=== PATIENT | male | born 1955 | race Caucasian/White ===

== ENCOUNTER → 2016-09-11 | Outpatient (CLI) | payer BC ==
[~2016-09-11] MED LIST: ATOR-14 PO; COEN150C PO; FISHOIL PO
[2016-09-11 12:16] LABS: BASO % 0.4 %; BASO ABS # 0.02 K/uL (0-0.2); COMPLETE YES; EOS % 1.1 %; HEMATOCRIT 42.9 % (42-52); IG% 0.2 %; LYMPH ABS # 1.92 K/uL (1.2-3.4); MEAN CELL VOLUME 94.5 fL (80-100); MEAN CORPUSCULAR HEMOGLOBIN 31.5 pg (25-34); MEAN CORPUSCULAR HGB CONC 33.3 g/dl (32-36); MONO % 7.3 %; PLATELET COUNT 207 K/uL (130-400); RED BLOOD COUNT 4.54 M/uL (4.7-6.1); WHITE BLOOD COUNT 5.34 K/uL (4.8-10.8)
[2016-09-11 12:21] LABS: URINE APPEARANCE CLEAR (CLEAR); URINE BILIRUBIN NEG (NEG); URINE COLOR DK YELLOW; URINE NITRITE NEG (NEG); URINE SPECIFIC GRAVITY 1.028 (1.000-1.030); UROBILINOGEN NEG (NEG); ZZUR CULT IF INDIC CLEAN CATCH NO
[2016-09-11 12:26] LABS: MANUAL MICROSCOPIC REQUIRED? NO; REVIEW REQ? NO
[2016-09-11 12:45] LABS: ALT/SGPT 25 U/L (12-78); BLOOD UREA NITROGEN 16 mg/dl (7-18); BUN/CREATININE RATIO 14.9 (10-20); CARBON DIOXIDE 29 mmol/L (21-32); CHLORIDE 104 mmol/L (98-107); GLUCOSE 105 mg/dl (70-99); POTASSIUM 4.1 mmol/L (3.5-5.1); SODIUM 138 mmol/L (136-145)
[2016-09-11 12:50] LABS: ALB/GLOB RATIO 1.7 (0.9-2); ALKALINE PHOSPHATASE 69 U/L (45-117); AST/SGOT 11 U/L (15-37)
--- NOTE | 2016-09-17 09:48 | CODING QUERY MEDICAL NECESSITY ---
SUPPORTING DIAGNOSIS NEEDED A supporting diagnosis is required for the test/procedure performed on this patient in order for us to be reimbursed by the patient's insurance. Please provide a supporting diagnosis for the following test/procedure listed below next to the test name along with your signature. *If there is no additional diagnosis for this patient that would support the following test/procedure please document that below next to the test/procedure. Test(s)/Procedure(s) that require a supporting diagnosis: * PSA DIAGNOSIS: Provider Signature: Date: Thank you Whit [employer] Information Management Once completed, please kindly fax back to [phone] For questions please call [phone]
== END | disposition home or self-care (01) ==
LOC: C.LABBFT 10:10
PROVIDERS: ATTEND Internal Medicine
DX: E78.00 Pure hypercholesterolemia, unspecified (principal); F41.9 Anxiety disorder, unspecified; R39.9 Unspecified symptoms and signs involving the genitourinary system; N40.0 Benign prostatic hyperplasia without lower urinary tract symptoms

== ENCOUNTER → 2017-05-12 | Day surgery (SDC) | payer BC, OTHER ==
[2017-04-23 10:43] VITALS: Ht 180.3 cm; Wt 95.5 kg
[~2017-05-12] VITALS: Ht 180.3 cm; Wt 95.5 kg
[~2017-05-12] MED LIST changes: -ATOR-14 PO; +ATOR10TA82 PO; -COEN150C PO; -FISHOIL PO; +LIDOCAINE HCL 2% 2 ML VIAL (20MG/ML) ONE; +PROPOFOL IV EMULSION 10 MG/ML 20 ML VIAL IV ONE; +SODIUM CHLORIDE 0.9% 500ML 500 ML IV ONE
--- NOTE | 2017-05-12 14:50 | Discharge Instructions ---
Endoscopy Patient Instructions Date / Procedure(s) Performed May 12, 2017. Colonoscopy Allergy Information Coded Allergies: Aspirin (Verified Allergy, Mild, HIVES, 05/12/17) Discharge Date / Findings May 12, 2017. Colon polyp Diverticulosis Internal hemorrhoids Medication Instructions OK to resume all medications today as prescribed Reported Home Medications Medications Dose Route/Sig Max Daily Dose Days Date Category Lipitor (Atorvastatin Calcium) 10 Mg Tab 10 Mg PO HS 04/23/17 Reported Provider Instructions Activity Restrictions - No exercising or heavy lifting for 24 hours. - Do not drink alcohol the day of the procedure. - Do not drive a car or operate machinery until the day after the procedure. - Do not make any important decisions or sign important papers in 24 hours after the procedure. Following Day: - Return to full activity which may include returning to work/school. Diet Start your diet with liquids and light foods (jello, soup, juice, toast). Then eat your usual diet if not nauseated. Treatment For Common After Affects For mild abdominal pain, bloating, or excessive gas: - Rest - Eat lightly - Lie on right side Follow-Up Information Follow-up with Dr. Russ García as scheduled Anesthesia Information What You Should Know You have had a procedure that required some medicine to reduce anxiety and discomfort. This treatment is called moderate sedation. After receiving the treatment, you may be sleepy, but you will be able to breathe on your own. The effects of the treatment may last for several hours. Follow these instructions along with Activity/Diet recommendations noted above: * Do NOT do anything where dizziness or clumsiness would be dangerous. * Rest quietly at home today, then you can be up and about tomorrow. * Have a responsible person stay with you the rest of today. * You may have had an I.V. today. If so, you may take the dressing off later today. Recommendations Call your doctor if: * Trouble breathing * Continuous vomiting for more than 24 hours * Temperature above 101 degrees * Severe abdominal pain or bloating * Pain not relieved by pain medicine ordered * There is increased drainage or redness from any incision * A large amount of rectal bleeding greater than 2-3 tablespoons. (If you had a polyp/s removed or have hemorrhoids, a small amount of blood - from the rectum is to be expected.) * You have any unanswered questions or concerns. IN THE EVENT OF A SERIOUS EMERGENCY, GO TO THE NEAREST EMERGENCY ROOM Your discharge instructions were prepared by provider Jairon Russo. Patient Instructions Signature Page Bari Moreno Patient (or Guardian) Signature/Date: I have read and understand the instructions given to me by my caregivers. Caregiver/RN/Doctor Signature/Date: The above-named patient and/or guardian has received patient instructions on this date. + Original Patient Signature Page (only) stays with chart. Please make copy for patient.
--- NOTE | 2017-05-12 14:55 | Endo History and Physical ---
History & Physical Date of Service: May 12, 2017. Chief Complaint: History of tubular adenoma Referring Physician: Dr. Russ García History of Present Illness 62 yo CM who presents for colonoscopy secondary to history of colon polyps Past Surgical History Hx Cardiac Surgery: No Hx Internal Defibrillator: No Hx Pacemaker: No Hx Abdominal Surgery: Yes (COLON RESECTION) Hx of Implantable Prosthesis: No Hx Post-Op Nausea and Vomiting: No Hx Cancer Surgery: No Hx Thoracic Surgery: No Hx Orthopedic: No Hx Urinary Tract Surgery: No Family History None Social History Smoking Status: Former Smoker Hx Substance Use: No Hx Alcohol Use: Yes (OCCASIONALLY) Allergies Coded Allergies: Aspirin (Verified Allergy, Mild, HIVES, 05/12/17) Current Medications Reported Home Medications Medications Dose Route/Sig Max Daily Dose Days Date Category Lipitor (Atorvastatin Calcium) 10 Mg Tab 10 Mg PO HS 04/23/17 Reported Vital Signs Weight (Kilograms): 95.45 Height (Feet): 5 Height (Inches): 11 Date Time Temp Pulse Resp B/P (MAP) Pulse Ox O2 Delivery O2 Flow Rate FiO2 05/12/17 14:21 36.6 60 18 154/93 (113) 97 Room Air Physical Exam General Appearance: WD/WN, no apparent distress Respiratory/Chest: Auscultation: breath sounds normal Cardiovascular: Heart Auscultation: RRR Abdomen: Bowel Sounds: normal Inspection & Palpation: soft, non-distended, no tenderness, guarding & rebound Assessment and Plan Assessment: 62 yo CM who presents for colonoscopy secondary to history of colon polyps Plan: Proceed with colonoscopy.
--- NOTE | 2017-05-12 15:33 | GI REPORT ---
Procedure Date: 05/12/2017 2:14 PM Procedure: Colonoscopy Indications: High risk colon cancer surveillance: Personal history of colonic polyps Medicines: Monitored Anesthesia Care Complications: No immediate complications. Estimated Blood Loss: Estimated blood loss: none. Procedure: Pre-Anesthesia Assessment: - Prior to the procedure, a History and Physical was performed, and patient medications and allergies were reviewed. The patient's tolerance of previous anesthesia was also reviewed. The risks and benefits of the procedure and the sedation options and risks were discussed with the patient. All questions were answered, and informed consent was obtained. Prior Anticoagulants: The patient has taken no previous anticoagulant or antiplatelet agents. ASA Grade Assessment: II - A patient with mild systemic disease. After reviewing the risks and benefits, the patient was deemed in satisfactory condition to undergo the procedure. After I obtained informed consent, the scope was passed under direct vision. Throughout the procedure, the patient's blood pressure, pulse, and oxygen saturations were monitored continuously. The scope was introduced through the anus and advanced to the terminal ileum. The colonoscopy was performed without difficulty. The patient tolerated the procedure well. The quality of the bowel preparation was good. Findings: The perianal and digital rectal examinations were normal. A 5 mm polyp was found in the ascending colon. The polyp was sessile. The polyp was removed with a hot snare. Resection and retrieval were complete. Scattered small-mouthed diverticula were found in the entire colon. Non-bleeding internal hemorrhoids were found during retroflexion. The hemorrhoids were small. Impression: - One 5 mm polyp in the ascending colon, removed with a hot snare. Resected and retrieved. - Diverticulosis in the entire examined colon. - Non-bleeding internal hemorrhoids. Recommendation: - Resume previous diet. - Continue present medications. - Repeat colonoscopy for surveillance based on pathology results. - Return to primary care physician as previously scheduled. Jairon Russo DO 05/12/2017 3:33:39 PM This report has been signed electronically. Note Initiated On: 05/12/2017 2:14 PM I attest to the content of the Intraoperative Record and orders documented therein, exceptions below
[2017-05-12 15:57] VITALS: BP 127/58; PULSE 52; O2SAT 97
--- NOTE | 2017-05-12 16:49 | Anesthesiology Progress Note ---
Anesthesia Post Op Note Date & Time May 12, 2017 at 16:49 Vital Signs Pain Intensity: 0 Vital Signs Past 12 Hours Date Time Temp Pulse Resp B/P (MAP) Pulse Ox O2 Delivery O2 Flow Rate FiO2 05/12/17 15:57 52 20 127/58 (81) 97 Room Air 05/12/17 15:44 64 20 138/97 (111) 96 Room Air 05/12/17 15:29 68 20 135/63 (87) 95 Room Air 05/12/17 14:21 36.6 60 18 154/93 (113) 97 Room Air Notes Mental Status: alert / awake / arousable, participated in evaluation Pt Amnestic to Procedure: Yes Nausea / Vomiting: adequately controlled Pain: adequately controlled Airway Patency, RR, SpO2: stable & adequate BP & HR: stable & adequate Hydration State: stable & adequate Anesthetic Complications: no major complications apparent
== END | disposition home or self-care (01) ==
LOC: C.GI 14:01
PROVIDERS: ATTEND Internal Medicine
DX: Z12.11 Encounter for screening for malignant neoplasm of colon (principal); D12.2 Benign neoplasm of ascending colon; K57.30 Diverticulosis of large intestine without perforation or abscess without bleeding; K64.8 Other hemorrhoids; Z86.010 Personal history of colon polyps; Z87.891 Personal history of nicotine dependence; Z88.6 Allergy status to analgesic agent; Z79.899 Other long term (current) drug therapy

== ENCOUNTER → 2017-05-27 | Outpatient (CLI) | payer OTHER ==
[~2017-05-27] MED LIST changes: -LIDOCAINE HCL 2% 2 ML VIAL (20MG/ML) ONE; -PROPOFOL IV EMULSION 10 MG/ML 20 ML VIAL IV ONE; -SODIUM CHLORIDE 0.9% 500ML 500 ML IV ONE
[2017-05-27 12:48] LABS: BLOOD UREA NITROGEN 19 mg/dl (7-18); CALCIUM 8.8 mg/dl (8.5-10.1); CARBON DIOXIDE 30 mmol/L (21-32); CREATININE 1.05 mg/dl (0.60-1.40); GLUCOSE 111 mg/dl (70-99); POTASSIUM 4.2 mmol/L (3.5-5.1); SODIUM 140 mmol/L (136-145)
[2017-05-27 13:15] LABS: HEMOGLOBIN A1C 5.4 % (4.5-5.6)
== END | disposition home or self-care (01) ==
LOC: C.LABBFT 07:31
PROVIDERS: ATTEND Internal Medicine
DX: R39.9 Unspecified symptoms and signs involving the genitourinary system (principal); E78.00 Pure hypercholesterolemia, unspecified; R73.03 Prediabetes

== ENCOUNTER 2022-05-19 11:47 | Observation (INO) ==
--- NOTE | 2022-05-13 14:55 | Anesthesiology Consultation ---
Date of Service May 13, 2022 Assessment & Plan (1) Encounter for pre-operative examination: Chart Review Chart Review: Acceptable Risk for Surgery (pending preop Covid testing results ) and Patient NOT seen in Pre Admission Testing -COVID screening: Per PAT nursing assessment on 05/13/22. Pt did test negative with home Covid test 3-4 weeks ago (was not feeling well- symptoms have since resolved). No known COVID-19 positive contacts or current COVID-19 related symptoms. Travel screen negative. Patient vaccinated for Covid. Pt scheduled as admission- preop Covid test ordered for 05/14/22 (pt will go to [facility])= awaiting results Per cardio workload message 05/06/22= "Based on this stress ECHO he is an acceptable cardiac risk to undergo his planned urologic surgery (TURP). From a cardiac standpoint it would be best for him to remain on aspirin uninterrupted throughout the perioperative course. However, the aspirin may dispose him to excessive bleeding from the procedure. If it is felt that he needs to stop the aspirin prior to the procedure from a urologic standpoint would do it for a minimum number of days felt necessary to safely perform the procedure. Would restart the aspirin postoperatively as soon as it is felt safe to do so from a urologic bleeding standpoint." Pt seen by cardiology 04/13/22= Status post LAD stent April 2021. On diagnostic cardiac catheterization, a thrombus was noted in the LAD. Since stent deployment no anginal type symptoms. Prior to stent placement patient had dyspnea. Also had COVID prior to stent appointment. At this time he complains of [place]. However he can walk on a treadmill for up to 1 hour at a distance of 3 miles despite this complaint. Cannot exclude the dyspnea is an adverse reaction from ticagrelor. He does have occasional associated audible wheezing. This would imply bronchoconstriction. However cannot exclude the dyspnea as an anginal equivalent symptom. Discontinue Brilinta. Continue aspirin therapy indefinitely in light of drug-eluting stent. Monitor BPs at home. Continue with losartan. If BP remains elevated would consider increasing losartan. If dyspnea does not improve with discontinuation of Brilintawe will order stress echocardiogram and PFTs. Follow-up in 6 months. Addendum 04/19/2022 = In general, the recommendation in a coronary stent patient who is on aspirin is at the remain on aspirin unerupted throughout a surgical course. This is because of the risk of late stent thrombosis. As the stent was applied at the time of acute coronary syndrome his cardiac risk is increased. From a cardiac standpoint I would recommend not stopping his aspirin. There is still question to the etiology of dyspnea on exertionwould delay any elective surgical procedure until he has resolution of dyspnea or undergoes a stress echo which shows no evidence of myocardial ischemia. Patient seen by pulmonary 04/27/2022 = restrictive lung diseaseresolved on PFT September 2021. Chest CT from August 2021 showed no interstitial thickening. Exertional shortness of breathimproving. Do not see any pulmonary etiology for patient's shortness of breath. Continue with incentive spirometry. Follow-up as needed History Surgery Operation Date: 05/19/22 10:40 Proposed Procedures p TURP (Transurethral Resection of the Prostate) - Russ Turpin MD Height/Weight Height: 5 ft 11 in Weight: 108.862 kg Allergies Allergy/AdvReac Type Severity Reaction Status Date / Time niacin Allergy Intermediate Red/itchine Verified 05/13/22 13:49 ss tamsulosin Allergy Unknown "Didn't Verified 05/13/22 13:49 work" per pt simvastatin AdvReac Mild Myalgias Verified 05/13/22 13:49 Medications Home Medications Medication Instructions Recorded Confirmed Last Taken albuterol sulfate 90 mcg/actuation 2 puff inhalation QID PRN 03/14/21 05/13/22 Unknown aerosol inhaler (ProAir HFA) shortness of breath #8.5 grams aspirin 81 mg tablet,delayed 81 mg PO QAM 04/23/21 05/13/22 01/19/22 release (Adult Low Dose Aspirin) nitroglycerin 0.4 mg sublingual 0.4 mg sublingual Q5M PRN Chest 04/23/21 05/13/22 Unknown tablet Pain Incentive Spirometer #1 ea 05/02/21 04/17/22 Unknown glucosamine-chondroitin 250 mg-200 2 tab PO QAM 05/07/21 05/13/22 01/20/22 mg tablet (Osteo Bi-Flex) lutein 25 mg-zeaxanthin 5 mg 1 cap PO QAM 05/07/21 05/13/22 01/20/22 capsule (Ocuvite Lutein) sildenafil 100 mg tablet 100 mg PO DAILY PRN sexual 06/17/21 05/13/22 Unknown activity #18 tabs metoprolol tartrate 25 mg tablet 12.5 mg PO BID #90 tabs 11/11/21 05/13/22 01/20/22 atorvastatin 80 mg tablet 80 mg PO HS #90 tabs 12/12/21 05/13/22 01/19/22 hydrocortisone 2.5 % topical cream 1 applic [place] TID PRN hemorrhoids 03/23/22 05/13/22 Unknown with perineal applicator #30 grams losartan 25 mg tablet 50 mg PO QAM #90 tabs 04/17/22 05/13/22 Unknown Past Medical History Medical History (Updated 05/14/22 @ 08:48 by Jessica Augustin PA-C) Acid reflux disease Anxiety Benign prostatic hyperplasia with lower urinary tract symptoms CAD (coronary artery disease) S/p SHIVA to LAD Apr [address] Melvin Farrar Diverticulitis of colon 2011 [place] syndrome Per record. Pt unaware. Total bili 1.9 on 03/23/22 History of COVID-19 Dx 06/15/20 ([facility]) > symptoms of nausea, aches/pain, loss of appetite, SOB > resolved except residual weakness and occasional shaking History of myocardial infarction 04/2021 HTN (hypertension) Hypercholesterolemia Hypothyroidism Obesity Past Family History Family History Father , age 71 Myocardial infarction, Onset Age: 40 x 3 Hypertension Family/Other Diabetes Coronary heart disease Dyslipidemia Mother Dementia COPD (chronic obstructive pulmonary disease) Other No family history of adverse response to anesthesia Denies family history of Ovarian cancer Prostate cancer Breast cancer Colorectal cancer Colonic polyp Past Surgical History Surgical History H/O heart artery stent x 1 () H/O hemorrhoidectomy 2008 H/O right inguinal hernia repair History of cardiac catheterization 04/2021 -- [facility] [place] - 1 stent (type?) History of carpal tunnel surgery of left wrist History of colonoscopy History of partial colectomy 2011 (from diverticulitis) History of tonsillectomy History of wisdom tooth extraction Social History Smoking Status: Former smoker tobacco type: cigarettes Do You Dip or Chew Tobacco: No Smoking End Date: 30 years ago Hx Alcohol Use: Yes Alcohol type: beer alcohol intake frequency: a few times a week Hx Substance Use: No substance use type: does not use Lab Results Anesthesia Preop Results Results Anesthesia Widget: WBC 6.40 K/ul (4.8-10.8) 05/08/22 Hgb 14.9 g/dl (14.0-18.0) 05/08/22 Hct 43.9 % (42.0-52.0) 05/08/22 Plt 223 K/uL (130-400) 05/08/22 Na 140 mmol/L (136-145) 05/08/22 K 4.2 mmol/L (3.5-5.1) 05/08/22 Cl 104 mmol/L (98-107) 05/08/22 CO2 30 mmol/L (21-32) 05/08/22 BUN 21 mg/dl (6-23) 05/08/22 Creat 1.13 mg/dl (0.6-1.4) 05/08/22 Glucose Level 97 mg/dl (70-99(Fasting)) 05/08/22 TSH 3.509 uIu/ml (0.300-4.500) 04/02/22 Free T4 0.82 ng/dl (0.61-1.60) 04/02/22 Testing Laboratory Results 05/08/22= URINE CULTURE: No growth Electrocardiogram Date: 04/16/22 Findings: + NSR @ (66bpm) Normal EKG per cardio Chest X-Ray Date: 04/16/22 Findings: + NAD Echocardiogram Date: 04/12/21 EF: 55-60% LV Function: normal RWMA: + none Other Findings: + LVH (moderate/concentric) Valvular Disease: + no significant valvular disease Moderately increased LV posterior wall thickness. Stress Test Date: 05/01/22 Type: exercise (ECHO) Resting RWMA: + none Negative exercise stress echocardiogram and EKG for ischemia at 76% MPHR. 9 METS achieved. Normal BP response with exercise. No significant ectopy at rest and with exercise. No exercise-induced chest pain. Resting echocardiogram with normal biventricular systolic function, mild LVH, borderline left atrial dilation, and no significant valvular abnormalities. Cardiac Catheterization Date: 02/15/22 LM = normal. LAD = 70-75% acute appearing lesion Circumflex = mild disease proximally. Thrombus = mild disease RCA = not injected today, catheterization in [place] (04/11/22) showed no significant disease in the RCA. Non-STEMI due to acute appearing 70-75% lesion in mid LAD, successfully stented with SHIVA, decreasing stenosis to 0%. Mild disease elsewhere. RCA not injected during this cardiac catheterization.
[~2022-05-19 11:47] MED LIST changes: -ATOR10TA82 PO; +CIPROFLOXACIN / D5W 400 MG/200 ML BAG IV SCH
[2022-05-19] MEDS ORDERED: DEXAMETHASONE SOD INJ 4 MG/ML VIAL ONE (12:55)
[2022-05-19] MEDS ORDERED: LIDOCAINE 2% MPF LOCAL 5 ML VIAL INFIL ONE (12:55)
[2022-05-19] MEDS ORDERED: ONDANSETRON INJ 2 MG/ML 2 ML VIAL ONE (12:55)
[2022-05-19] MEDS ORDERED: PROPOFOL IV EMULSION 10 MG/ML 20 ML VIAL IV ONE ×2 (12:55→13:58)
[2022-05-19] MEDS ORDERED: MIDAZOLAM HCL 1 MG/ML 2ML VIAL ONE (12:56)
[2022-05-19] MEDS ORDERED: fentaNYL citrate PF 100 MCG/2 ML VIAL ONE ×2 (12:56→14:03)
--- NOTE | 2022-05-19 13:22 | History & Physical Report ---
Date of Service May 19, 2022 Assessment & Plan (1) Benign prostatic hyperplasia with lower urinary tract symptoms: Plan: BPH with symptoms Plan for TURP Risks, benefits, expectations reviewed History of Present Illness Primary Care Provider: Russ García MD This 67-year-old male with voiding dysfunction presenting for TURP He does have a history of an AR status post stent Allergies Allergy/AdvReac Type Severity Reaction Status Date / Time niacin Allergy Intermediate Red/itchine Verified 05/13/22 13:49 ss tamsulosin Allergy Unknown "Didn't Verified 05/13/22 13:49 work" per pt simvastatin AdvReac Mild Myalgias Verified 05/13/22 13:49 Home Medications Medication Instructions Recorded Confirmed Type albuterol sulfate 90 mcg/actuation 2 puff inhalation QID PRN 03/14/21 05/19/22 Rx aerosol inhaler (ProAir HFA) shortness of breath #8.5 grams aspirin 81 mg tablet,delayed 81 mg PO QAM 04/23/21 05/19/22 History release (Adult Low Dose Aspirin) nitroglycerin 0.4 mg sublingual 0.4 mg sublingual Q5M PRN Chest 04/23/21 05/19/22 History tablet Pain Incentive Spirometer #1 ea 05/02/21 05/14/22 Rx glucosamine-chondroitin 250 mg-200 2 tab PO QAM 05/07/21 05/19/22 History mg tablet (Osteo Bi-Flex) lutein 25 mg-zeaxanthin 5 mg 1 cap PO QAM 05/07/21 05/19/22 History capsule (Ocuvite Lutein) sildenafil 100 mg tablet 100 mg PO DAILY PRN sexual 06/17/21 05/19/22 Rx activity #18 tabs metoprolol tartrate 25 mg tablet 12.5 mg PO BID #90 tabs 11/11/21 05/19/22 Rx hydrocortisone 2.5 % topical cream 1 applic [place] TID PRN hemorrhoids 03/23/22 05/19/22 Rx with perineal applicator #30 grams losartan 25 mg tablet 50 mg PO QAM #90 tabs 04/17/22 05/19/22 Rx atorvastatin 80 mg tablet 80 mg PO QAM 05/19/22 05/19/22 History famotidine 40 mg tablet (Pepcid) 40 mg PO DAILY 05/19/22 History Past Med/Surg History Medical History Acid reflux disease Anxiety Benign prostatic hyperplasia with lower urinary tract symptoms CAD (coronary artery disease) S/p SHIVA to LAD Apr [address] Melvin Farrar Diverticulitis of colon 2011 [place] syndrome Per record. Pt unaware. Total bili 1.9 on 03/23/22 History of COVID-19 Dx 06/15/20 ([facility]) > symptoms of nausea, aches/pain, loss of appetite, SOB > resolved except residual weakness and occasional shaking History of myocardial infarction 04/2021 HTN (hypertension) Hypercholesterolemia Hypothyroidism Obesity Surgical History H/O heart artery stent x 1 () H/O hemorrhoidectomy 2008 H/O right inguinal hernia repair History of cardiac catheterization 04/2021 -- [facility] [place] - 1 stent (type?) History of carpal tunnel surgery of left wrist History of colonoscopy History of partial colectomy 2011 (from diverticulitis) History of tonsillectomy History of wisdom tooth extraction Family History Father , age 71 Myocardial infarction, Onset Age: 40 x 3 Hypertension Family/Other Diabetes Coronary heart disease Dyslipidemia Mother Dementia COPD (chronic obstructive pulmonary disease) Other No family history of adverse response to anesthesia Denies family history of Ovarian cancer Prostate cancer Breast cancer Colorectal cancer Colonic polyp Social History Smoking Status: Former smoker Age Quit Using Tobacco: 34; Smoking End Date: 30 years ago; Second Hand Exposure: No; Do You Dip or Chew Tobacco: No; Tobacco Cessation Education Requested by Patient: No Hx Alcohol Use: Yes Alcohol type: beer Alcohol Intake Frequency Comment: Occasional weekend alcohol. Hx Substance Use: No Preferred Language: Serbian Communication Ability: Effective Visual Impairment: No Limitations Hearing Ability: Normal Electronic Equipment Installer Required: No Beliefs That Will Affect Care: None marital status: Single Current Living Situation: Alone current occupational status: employed current occupation: Part-time work-[employer] Feels Safe at Home: Yes Safety Concerns: Feels Safe At This Time Childhood Exposure to Second-Hand Smoke: Yes caffeine: No Dental Care, Regularly: No Physical Activity Frequency: Does not Exercise Seatbelt Use: always Sunscreen Use: No Assistive Devices: Glasses Assistive Devices Comment: reading glasses Physical Exam Constitutional: well developed and well nourished Neck: neck nontender Respiratory: normal respiratory effort; no respiratory distress and does not use accessory muscles Cardiovascular: Rate/Rhythm: regular rate Vessels: radial pulses present Extremities: no edema Gastrointestinal (Abdomen): Inspection/Auscultation: abdomen normal to inspection Percussion/Palpation: abdomen soft; abdomen nontender and no guarding Musculoskeletal: Head/Neck/Chest: normocephalic and head atraumatic Extremities: extremities normal to inspection Skin: no rashes and no lesions Trauma: no evidence of skin trauma Neurologic: awake; not obtunded Speech / Cognition: normal speech Motor/Sensory: no tremor Psychiatric: Orientation: alert and oriented x 3 Genitourinary: no CVA tenderness Lymphatic: no lymphadenopathy Results & Data Vital Signs (Past 12 Hours) Vital Signs Temp Pulse Resp BP Pulse Ox O2 Del Method 05/19/22 12:10 37.0 C 66 20 164/98 H 95 Room Air
[2022-05-19] MEDS ORDERED: fentaNYL citrate PF 100 MCG/2 ML VIAL IV PRN (13:33)
[2022-05-19] MEDS ORDERED: PROMETHAZINE HCL 12.5 MG in SODIUM CHLORIDE 0.9% 50 ML IV PRN (13:33)
[2022-05-19] MEDS ORDERED: ePHEDrine sulfate 50 MG/ML AMP IV PRN (13:33)
[2022-05-19] MEDS ORDERED: HYDROmorphone INJ 2 MG/ML SYR/VIAL IV PRN (13:33)
[2022-05-19] MEDS ORDERED: ONDANSETRON INJ 2 MG/ML 2 ML VIAL IV PRN (13:33)
[2022-05-19] MEDS ORDERED: ATROPINE SULFATE 0.1 MG/ML 10ML SYR IV PRN (13:33)
--- NOTE | 2022-05-19 14:42 | Operative Report ---
PG Post Operative Report Pre & Post Diagnosis Operation Date: 05/19/22 13:15 Pre-Op Diagnosis: Benign Prostatic Hyperplasia with Lower Urinary tract symptoms Post-Op Diagnosis: Benign Prostatic Hyperplasia with Lower Urinary tract symptoms I identified the patient and participated in the time-out.: Yes Procedure Operation Date: 05/19/22 13:15 Actual Procedures p Transurethral Resection of the Prostate(Not Applicable) - Russ Turpin MD Surgeon Russ Turpin MD Link Trainer Mechanic none Estimated Blood Loss 0 Findings Consistent with Post-Op Diagnosis Specimens none Description of Procedure The patient was identified in the preoperative holding area, appropriate informed consents were reviewed and completed and the patient was transferred to the operative suite. Upon arrival, appropriate antibiotics and anesthesia were administered and the patient was placed in dorsal lithotomy position and prepped and draped in sterile fashion. To begin the case to pass 27 [place] resectoscope with 30 degree lens. Inspection revealed a healthy-appearing urethra and a large prostate. He has a high bladder neck and a heavily trabeculated bladder. Ureteral orifices were identified. Following my inspection I exchanged the visual obturator for resecting element using a button electrode. I incised the bladder neck at 5 and 7:00 and flatten the area between the 2 incisions. This drastically improved the opening to the bladder. I then resected the left lateral lobe followed by the right lateral lobe. After completely opening the prostatic urethra meticulous hemostasis was obtained. I then placed a 22 [place] Marquez catheter and concluded the case. There were no complications. I attest to the content of the Intraoperative Record and any orders documented therein. Any exceptions are noted below.
--- NOTE | 2022-05-19 15:04 | Anesthesiology Progress Note ---
Date of Service May 19, 2022 Anesthesia Post Procedure Vital Signs Vital Signs: Temp Pulse Pulse Resp BP Pulse Ox O2 Del Method 05/19/22 15:00 52 L 12 143/84 H 92 Room Air 05/19/22 14:50 53 L 11 L 135/90 96 Room Air 05/19/22 14:40 52 L 12 146/92 H 100 Oxymask 05/19/22 14:31 36.5 C 61 10 L 147/92 H 96 Oxymask 05/19/22 12:10 37.0 C 66 20 164/98 H 95 Room Air O2 Flow Rate 05/19/22 15:00 05/19/22 14:50 05/19/22 14:40 8 05/19/22 14:31 8 05/19/22 12:10 Transfer of Care Handoff Completed per policy Notes Mental Status: alert / awake / arousable and participated in evaluation Patient Amnestic to Procedure: Yes Nausea / Vomiting: adequately controlled Pain: adequately controlled Airway Patency, RR, SpO2: stable & adequate BP & HR: stable & adequate Hydration State: stable & adequate Anesthetic Complications: no major complications apparent
[2022-05-19] MEDS ORDERED: ALBUTEROL HFA 8 GM INHALER INH PRN (16:03)
[2022-05-19] MEDS ORDERED: NITROGLYCERIN SL 0.4 MG/TAB TAB SL PRN (16:03)
[2022-05-19] MEDS ORDERED: ACETAMINOPHEN 325 MG TAB PO PRN (16:03)
[2022-05-19] MEDS ORDERED: traMADol HCL 50 MG TABLET PO PRN (16:03)
[2022-05-19] MEDS: SODIUM CHLORIDE 0.9% 1000ML 1,000 ML IV SCH (16:16)
[2022-05-19] MEDS: METOPROLOL TARTRATE 25 MG TAB PO SCH (20:48)
[2022-05-20] MEDS: SODIUM CHLORIDE 0.9% 1000ML 1,000 ML IV SCH ×2 (00:27→08:53)
--- NOTE | 2022-05-20 08:02 | Urology Progress Note ---
Date of Service May 20, 2022 Assessment & Plan (1) Benign prostatic hyperplasia with lower urinary tract symptoms: Plan Postop day #1 status post TURP Voiding trial this morning Discharge home Continue aspirin Home with Cipro x3 days Admission and Anticipated Discharge Date Admission Date: May 19, 2022 Subjective No major issues overnight Marquez draining well Erhard/clear urine Labs pending Physical Exam Physical Exam: Marquez draining appropriately Results & Data Vital Signs (Past 12 Hours) Vital Signs Temp Pulse Resp BP BP Pulse Ox O2 Del Method 05/20/22 07:39 36.5 C 51 L 16 163/97 H 176/88 H 96 Room Air 05/20/22 03:49 36.8 C 56 L 16 144/75 H 95 Room Air 05/19/22 23:19 36.8 C 57 L 16 159/90 H 94 Room Air PG Care Time/CCT Total # of Minutes Spent Total Time Spent with Patient: Total time spent is greater than 50% in coordination of care (as documented) at patient's floor/unit and/or counseling patient: Coding Level of Care Code None Diagnoses Benign prostatic hyperplasia with lower urinary tract symptoms N40.1
[2022-05-20 08:37] LABS: Basophils # (auto) 0.02 K/uL (0-0.2); Basophils % (auto) 0.2 %; Eosinophils # (auto) 0.01 K/uL (0-0.50); Eosinophils % (auto) 0.1 %; Immature Granulocytes # (auto) 0.03 K/uL (0.01-0.20); Immature Granulocytes % (auto) 0.3 %; Lymphocytes # (auto) 1.83 K/uL (1.2-3.4); Lymphocytes % (auto) 16.9 %; Mean Corpuscular Hemoglobin 32.1 pg (25.0-34.0); Mean Corpuscular Hgb Conc 34.1 g/dL (32.0-36.0); Mean Platelet Volume 9.8 fL (9.4-12.4); Monocytes # (auto) 0.88 K/uL (0.11-0.59); Monocytes % (auto) 8.1 %; Neutrophils # (auto) 8.03 K/uL (1.40-6.50); Neutrophils % (auto) 74.4 %; Platelet Count 195 K/uL (130-400); RDW Coefficient of Variation 12.6 % (11.5-14.5); RDW Standard Deviation 43.8 fL (36.4-46.3); Red Blood Count 4.36 M/uL (4.70-6.10)
[2022-05-20] MEDS: METOPROLOL TARTRATE 25 MG TAB PO SCH (08:53)
[2022-05-20] MEDS ORDERED: FAMOTIDINE 40 MG TABLET PO SCH (09:00)
[2022-05-20] MEDS ORDERED: ASPIRIN 81 MG ECTAB PO SCH (09:00)
[2022-05-20] MEDS ORDERED: ATORVASTATIN 40 MG TAB PO SCH (09:00)
[2022-05-20] MEDS ORDERED: LOSARTAN POTASSIUM 50 MG TAB PO SCH (09:00)
[2022-05-20 09:02] LABS: Creatinine Clr Calc Pharmacy 99.6 ml/min; Est GFR (African American) 98.2 ml/min; Est GFR (Non-African American) 84.7 ml/min; Potassium 3.9 mmol/L (3.5-5.1)
--- NOTE | 2022-05-20 11:45 | Discharge Summary ---
Date of Service May 20, 2022 Admission HPI Per Admitting Provider This 67-year-old male with voiding dysfunction presenting for TURP He does have a history of an MD status post stent Admission Exam Per Admitting Provider Constitutional: well developed and well nourished Neck: neck nontender Respiratory: normal respiratory effort; no respiratory distress and does not use accessory muscles Cardiovascular: Rate/Rhythm: regular rate Vessels: radial pulses present Extremities: no edema Gastrointestinal (Abdomen): Inspection/Auscultation: abdomen normal to inspection Percussion/Palpation: abdomen soft; abdomen nontender and no guarding Musculoskeletal: Head/Neck/Chest: normocephalic and head atraumatic Extremities: extremities normal to inspection Skin: no rashes and no lesions Trauma: no evidence of skin trauma Neurologic: awake; not obtunded Speech / Cognition: normal speech Motor/Sensory: no tremor Psychiatric: Orientation: alert and oriented x 3 Genitourinary: no CVA tenderness Lymphatic: no lymphadenopathy Principal Diagnosis BPH with urinary obstruction/LUTS Discharge Exam Constitutional well developed and well nourished; no acute distress Respiratory no respiratory distress and no labored breathing Gastrointestinal (Abdomen) Inspection/Auscultation: abdomen normal to inspection Percussion/Palpation: abdomen soft; abdomen nontender Musculoskeletal Head/Neck/Chest: normocephalic Skin no rashes, warm and dry Neurologic moves all extremities and awake Psychiatric Orientation: alert, oriented x 3 and cooperative Discharge Data Allergies Allergy/AdvReac Type Severity Reaction Status Date / Time niacin Allergy Intermediate Red/itchine Verified 05/13/22 13:49 ss tamsulosin Allergy Unknown "Didn't Verified 05/13/22 13:49 work" per pt simvastatin AdvReac Mild Myalgias Verified 05/13/22 13:49 Procedures Performed Operation Date: 05/19/22 13:15 Actual Procedures p Transurethral Resection of the Prostate(Not Applicable) - Russ Turpin MD Hospital Course (1) Benign prostatic hyperplasia with lower urinary tract symptoms: Plan 67-year-old male admitted status post TURP. Patient tolerated procedure well. No acute issues postoperatively. Postop labs appropriate. No reported pain. Ambulated without issue. Marquez catheter removed in the morning of postop day #1. He voided approximately 10ml, bladder scanned for PVR of 250ml. He preferred to wait a little longer and try voiding again to avoid catheter replacement. A dose of Pyridium was given for dysuria. After a little more time, he was able to void 125ml and requested to be discharged. Patient was discharged home on postop day #1 without a Marquez catheter. He was in stable condition at time of discharge. All discharge instructions were reviewed, all questions answered. Appropriate postoperative follow-up was in place. Return ER criteria given, patient verbalized understanding. Total Time Total Time Spent Total Time Spent (In Minutes): 15 Discharge Plan Discharge Items Patient Disposition: Home - Self-Care Reason For Visit: URINARY RETENTION Discharge Diagnosis: Urinary retention Activity: Per Instructions section Non-emergency contact: Surgeon and Urologist Call non-emergency contact if: you have any medication questions, your pain is not controlled, your pain is worsening and you have a fever Follow-up/Referrals: Russ García MD [Primary Care Provider] - Chelle Clement CRNP [Nurse Practitioner] - 06/22/22 1:00 pm Diet: Regular Addtl Attending Provider Instructions: Please take all medications as prescribed and keep all follow-ups as scheduled. Please call our office at [phone] with any questions, concerns or need to reschedule appointments for any reason. We are happy to assist you. An antibiotic has been sent to your pharmacy, please take as directed. Pyridium has also been sent to your pharmacy as this may relieve burning with urination. Take as needed. Tips for your recovery at home: Dont be alarmed by brownish or reddish blood or clots in your urine. This is a result of the procedure. This may occur off and on for weeks to months after the procedure but should continue to improve. Drink plenty of fluids during the day (enough to keep your urine very light colored). This will help keep a healthy flow of urine. Avoid constipation. Please use a stool softener (Colace) as needed. Be sure to finish the antibiotics as prescribed. When to call [facility] at [phone]: Your urine contains heavy blood clots or you are unable to urinate You are constantly leaking urine Fever of 101F or higher, chills, nausea, or vomiting Your pain is not relieved with medication Pending Studies at Discharge: No Stand-Alone Forms: My [employer], Smoking Cessation Medications and DC Order Prescriptions: New ciprofloxacin HCl 500 mg tablet 500 mg PO BID 3 Days Qty: 6 0RF phenazopyridine [Pyridium] 100 mg tablet 100 mg PO BID PRN (Reason: pain) Qty: 7 0RF Continued metoprolol tartrate 25 mg tablet 12.5 mg PO BID Qty: 90 3RF losartan 25 mg tablet 50 mg PO QAM Qty: 90 3RF (DME) Incentive Spirometer Misc See Rx Instructions .MEDSUPPLY Qty: 1 0RF Rx Instructions: As directed sildenafil 100 mg tablet 100 mg PO DAILY PRN (Reason: sexual activity) Qty: 18 3RF Rx Instructions: administer 30 minutes to 4 hours before activity albuterol sulfate [ProAir HFA] 90 mcg/actuation HFA aerosol inhaler 2 puff inhalation QID PRN (Reason: shortness of breath) Qty: 8.5 2RF nitroglycerin 0.4 mg tablet, sublingual 0.4 mg sublingual Q5M PRN (Reason: Chest Pain) Rx Instructions: do not exceed 3 doses per episode aspirin [Adult Low Dose Aspirin] 81 mg tablet,delayed release (DR/EC) 81 mg PO QAM glucosamine-chondroitin [Osteo Bi-Flex] 250-200 mg tablet 2 tab PO QAM lutein-zeaxanthin [Ocuvite Lutein 25] 25-5 mg capsule 1 cap PO QAM hydrocortisone 2.5 % cream with perineal applicator 1 applic RI TID PRN (Reason: hemorrhoids) Qty: 30 2RF atorvastatin 80 mg tablet 80 mg PO QAM famotidine [Pepcid] 40 mg tablet 40 mg PO DAILY Discharge Orders: Discharge Order (Routine); Ordered 05/20/22 Ordered By: Arely Godfrey Admission Data Admit Date/Time: 05/19/22 14:37 Attending Provider: Russ Turpin Admit Provider: Russ Turpin Primary Care Provider: Russ García Other Interventions: Discharge Summary Assessment (RN) Last Done: 05/20/22 17:08 Coding Level of Care Code 65944 IN/OBS DISCH 30 MIN/LESS Diagnoses Benign prostatic hyperplasia with lower urinary tract symptoms N40.1
[2022-05-20 13:11] VITALS: TEMP 98.2
[2022-05-20] MEDS ORDERED: PHENAZOPYRIDINE HCL 200 MG TAB PO ONE (15:45)
[2022-05-20 17:10] VITALS: BP 140/88; PULSE 66; O2SAT 97
== END 2022-05-20 17:48 | disposition home or self-care (01) ==
LOC: 3N 11:47 → ASU 11:47

== ENCOUNTER 2024-02-28 07:44 | Inpatient (IN) ==
--- NOTE | 2024-02-28 08:07 | Emergency Department Note ---
Impression & Plan Chest pain ADMIT ED Provider Note HPI: History obtained from patient. The patient is a 68-year-old gentleman with history of coronary artery disease, who presents the emergency department with chief complaint of intermittent chest pain and shoulder pain for the past 2 days. Patient states the pain is "on and off". He denies any alleviating or exacerbating factors. Patient states he also noted at home his blood pressure was high at 199 systolic. On arrival here to the ED the patient is hypertensive at 196/108, heart rate is in the 50s, patient is otherwise saturating well on room air and appears to be in no acute distress. Patient states on arrival here to the ED he is not currently having any pain. ROS: - Per HPI Differential Diagnosis: Acute coronary syndrome, esophagitis, gastritis, costochondritis, aortic dissection, pulmonary embolism, amongst other potential pathologies. *Outpatient medications and allergy history reviewed. PE: General: Alert HEENT: Normocephalic, trachea midline Eyes: Extraocular eye movement is intact, no scleral erythema Pulmonary: Clear to auscultation bilaterally, no wheezing Cardio: Regular rate and rhythm GI: Abdomen is soft to palpation : No suprapubic tenderness MSK: No evidence of trauma or malformation of the extremities, no edema Skin: No evidence of rash Neuro: Alert, no focal deficits Psychiatric: Cooperative INDEPENDENT INTERPRETATIONS: patch setter: (As interpreted by myself): - An order was placed for continuous cardiac monitoring - Patient was noted to be in sinus rhythm with a rate of 56 EKG: (As interpreted by myself): Rate: 52 Rhythm: Sinus bradycardia Intervals: Within normal limits ST changes: No ST elevation Time: 0759 Chest x-ray: (As interpreted by myself): No acute disease Interventions provided in ED: -IV hydralazine, aspirin Medical Decision Making: IV was established and lab work obtained, 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 Patient was given IV hydralazine shortly after arrival for hypertension, this did result in good improvement in his blood pressure. Lab work shows no leukocytosis, hemoglobin is normal, platelet count is normal, CMP does not show any critical findings, high-sensitivity troponin does result mildly elevated at 31.8, EKG per my interpretation does not show any evidence of ST elevation or acute ischemic changes. On my reassessment the patient remains pain-free, given his history of CAD, hypertension, in addition to mildly elevated troponin I do feel that he will require admission to the hospital. Patient was in agreement. Will defer heparin and await delta troponin given that the patient is currently pain-free. I discussed all of the above with the on-call hospitalist, Dr. Solis, and the patient was placed for admission in stable condition. Consultants/Discussions held with other healthcare providers: -Hospitalist, Dr. Solis Disposition discussion held by myself with: -Patient Diagnosis: 1. Chest pain, acute 2. Elevated high-sensitivity troponin, acute 3. History of coronary artery disease, status post stent Disposition: Admission Jarad Page DO Emergency Medicine Past Med/Surg History Problem List (Updated 02/28/24 @ 09:53 by Alan Melendrez PA-C) Chest tightness Obesity HTN (hypertension) Umbilical hernia without obstruction and without gangrene Obesity (BMI 35.0-39.9 without comorbidity) Abdominal hernia Arthritis of right knee History of colon polyps Benign localized prostatic hyperplasia with lower urinary tract symptoms (LUTS) Severe obesity (BMI 35.0-35.9 with comorbidity) Hypertriglyceridemia Vitamin D deficiency OWENS (dyspnea on exertion) Tinnitus ETD (eustachian tube dysfunction) Antiplatelet or antithrombotic long-term use History of non-ST elevation myocardial infarction (NSTEMI) Family history of premature coronary heart disease Presence of drug-eluting stent in anterior descending branch of left coronary artery Stented coronary artery mid-LAD. Resolute reji drug-eluting stent of 3.0/12mm CAD (coronary artery disease) 70% mid-LAD lesion stented [facility] 04/15/21. 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) Pre-diabetes (Chronic) Tubular adenoma of colon (Chronic) Medical History Snores Hemorrhoids History of bladder stone History of adenomatous polyp of colon Sensorineural hearing loss of both ears Tinnitus, bilateral [place] syndrome HTN (hypertension) CAD (coronary artery disease) History of myocardial infarction NSTEMI (non-ST elevated myocardial infarction) Obesity History of COVID-19 Hypothyroidism Acid reflux disease Benign prostatic hyperplasia with lower urinary tract symptoms Diverticulitis of colon Hypercholesterolemia Surgical History History of endoscopy Hx of transurethral resection of prostate H/O heart artery stent History of cardiac catheterization History of colonoscopy History of carpal tunnel surgery of left wrist History of wisdom tooth extraction History of partial colectomy History of tonsillectomy H/O right inguinal hernia repair H/O hemorrhoidectomy Family History Father Myocardial infarction, Onset Age: 40 Hypertension Family/Other Diabetes Coronary heart disease Dyslipidemia Mother Dementia COPD (chronic obstructive pulmonary disease) Other No family history of adverse response to anesthesia Denies family history of Ovarian cancer Prostate cancer Breast cancer Colorectal cancer Colonic polyp Social History Smoking Status: Never smoker Tobacco Type: Cigarettes Age Started Using Tobacco: 17; Age Quit Using Tobacco: 34; packs per day: 0.5; Second Hand Exposure: No; Do You Dip or Chew Tobacco: No (quit 30+ years ago; advised); Hx Alcohol Use: Yes Alcohol type: beer and hard liquor Alcohol Intake Frequency Comment: Occasional weekend alcohol. Hx Substance Use: No Preferred Language: [place] Irish Communication Ability: Effective Visual Impairment: No Limitations Hearing Ability: Normal Entertainment [employer] Media Correspondent Required: No Beliefs That Will Affect Care: None marital status: Single Current Living Situation: Alone current occupational status: employed current occupation: Part-time work-[employer] Feels Safe at Home: Yes Childhood Exposure to Second-Hand Smoke: Yes Diet: regular caffeine: No Dental Care, Regularly: No Physical Activity Frequency: Does not Exercise Seatbelt Use: always Sunscreen Use: No Assistive Devices: Glasses Allergies Allergies Allergy/AdvReac Type Severity Reaction Status Date / Time niacin Allergy Unknown Red/itchine Verified 01/21/24 09:05 ss simvastatin AdvReac Unknown Myalgias Verified 01/21/24 09:05 tamsulosin AdvReac Unknown "Didn't Verified 01/21/24 09:05 work" per pt trazodone AdvReac Unknown Fatigued, Verified 01/21/24 09:05 shaky and off balance Home Meds Home Medications Medication Instructions Recorded Confirmed aspirin 81 mg tablet,delayed 81 mg PO QAM 04/23/21 01/21/24 release (Adult Low Dose Aspirin) nitroglycerin 0.4 mg sublingual 0.4 mg sublingual Q5M PRN Chest 04/23/21 01/21/24 tablet Pain sildenafil 100 mg tablet 100 mg PO UD PRN sexual activity 01/14/23 01/21/24 Previous Rx's Medication Instructions Recorded losartan 25 mg tablet 50 mg (2 x 25 mg) PO QAM #180 tabs 01/27/23 famotidine 40 mg tablet (Pepcid) 40 mg PO BID #60 tabs 01/06/24 topiramate 50 mg tablet (Topamax) 50 mg PO DAILY 30 days #30 tabs 01/17/24 atorvastatin 80 mg tablet 80 mg PO QAM #90 tabs 01/26/24 metoprolol tartrate 25 mg tablet 12.5 mg (1/2 x 25 mg) PO BID #90 02/10/24 tabs pantoprazole 40 mg tablet,delayed 40 mg PO DAILY #30 tabs 02/28/24 release Results & Data (ED) Vital Signs Vital Signs - 24 hr 02/28/24 07:53 02/28/24 08:03 02/28/24 08:03 Temperature 36.5 C Temperature Source Temporal Artery Scan Pulse Rate 65 Pulse Rate [Apical] 55 L Respiratory Rate 18 17 Respiratory Effort / Characteristics Non-Labored Spontaneous Respiratory Depth Normal Blood Pressure 170/119 H Blood Pressure [Left Arm] 196/108 H Blood Pressure Mean 136 Blood Pressure Mean [Left Arm] 137 Blood Pressure Position Sitting Pulse Oximetry 96 96 96 Oxygen Delivery Method Room Air Room Air Room Air Sepsis Recent Fever Within 48 Hours No Sepsis New/Unexplained Change in Mental Status No Sepsis Action Taken by Nursing No Action Required 02/28/24 08:18 02/28/24 08:20 02/28/24 08:20 Temperature Temperature Source Pulse Rate 49 L Pulse Rate [Apical] Respiratory Rate 15 Respiratory Effort / Characteristics Respiratory Depth Blood Pressure 149/97 H 149/97 H Blood Pressure [Left Arm] Blood Pressure Mean 125 125 Blood Pressure Mean [Left Arm] Blood Pressure Position Pulse Oximetry 95 Oxygen Delivery Method Sepsis Recent Fever Within 48 Hours Sepsis New/Unexplained Change in Mental Status Sepsis Action Taken by Nursing 02/28/24 08:20 02/28/24 08:21 02/28/24 08:26 Temperature Temperature Source Pulse Rate 50 L 61 Pulse Rate [Apical] Respiratory Rate 18 Respiratory Effort / Characteristics Respiratory Depth Blood Pressure 149/97 H Blood Pressure [Left Arm] Blood Pressure Mean 125 Blood Pressure Mean [Left Arm] Blood Pressure Position Pulse Oximetry 96 Oxygen Delivery Method Sepsis Recent Fever Within 48 Hours Sepsis New/Unexplained Change in Mental Status Sepsis Action Taken by Nursing 02/28/24 08:30 02/28/24 08:30 02/28/24 08:36 Temperature Temperature Source Pulse Rate 54 L 54 L Pulse Rate [Apical] Respiratory Rate 15 15 Respiratory Effort / Characteristics Respiratory Depth Blood Pressure 155/93 H Blood Pressure [Left Arm] Blood Pressure Mean 113 Blood Pressure Mean [Left Arm] Blood Pressure Position Pulse Oximetry 95 95 Oxygen Delivery Method Sepsis Recent Fever Within 48 Hours Sepsis New/Unexplained Change in Mental Status Sepsis Action Taken by Nursing 02/28/24 08:40 02/28/24 08:48 02/28/24 08:50 Temperature Temperature Source Pulse Rate 52 L Pulse Rate [Apical] Respiratory Rate 16 Respiratory Effort / Characteristics Respiratory Depth Blood Pressure 153/88 H 150/95 H Blood Pressure [Left Arm] Blood Pressure Mean 119 122 Blood Pressure Mean [Left Arm] Blood Pressure Position Pulse Oximetry 95 Oxygen Delivery Method Sepsis Recent Fever Within 48 Hours Sepsis New/Unexplained Change in Mental Status Sepsis Action Taken by Nursing 02/28/24 08:51 02/28/24 09:01 02/28/24 09:06 Temperature Temperature Source Pulse Rate 52 L 54 L Pulse Rate [Apical] Respiratory Rate 14 20 Respiratory Effort / Characteristics Respiratory Depth Blood Pressure 152/92 H Blood Pressure [Left Arm] Blood Pressure Mean 117 Blood Pressure Mean [Left Arm] Blood Pressure Position Pulse Oximetry 95 95 Oxygen Delivery Method Sepsis Recent Fever Within 48 Hours Sepsis New/Unexplained Change in Mental Status Sepsis Action Taken by Nursing 02/28/24 09:09 02/28/24 09:10 02/28/24 09:20 Temperature Temperature Source Pulse Rate 52 L Pulse Rate [Apical] Respiratory Rate 15 Respiratory Effort / Characteristics Respiratory Depth Blood Pressure 131/105 H 150/104 H Blood Pressure [Left Arm] Blood Pressure Mean 112 120 Blood Pressure Mean [Left Arm] Blood Pressure Position Pulse Oximetry 95 Oxygen Delivery Method Sepsis Recent Fever Within 48 Hours Sepsis New/Unexplained Change in Mental Status Sepsis Action Taken by Nursing 02/28/24 09:21 02/28/24 09:30 02/28/24 09:30 Temperature Temperature Source Pulse Rate 54 L Pulse Rate [Apical] Respiratory Rate 20 Respiratory Effort / Characteristics Respiratory Depth Blood Pressure 153/85 H 153/85 H Blood Pressure [Left Arm] Blood Pressure Mean 101 101 Blood Pressure Mean [Left Arm] Blood Pressure Position Pulse Oximetry 95 Oxygen Delivery Method Sepsis Recent Fever Within 48 Hours Sepsis New/Unexplained Change in Mental Status Sepsis Action Taken by Nursing 02/28/24 09:30 Temperature Temperature Source Pulse Rate 50 L Pulse Rate [Apical] Respiratory Rate 21 Respiratory Effort / Characteristics Respiratory Depth Blood Pressure Blood Pressure [Left Arm] Blood Pressure Mean Blood Pressure Mean [Left Arm] Blood Pressure Position Pulse Oximetry 95 Oxygen Delivery Method Sepsis Recent Fever Within 48 Hours Sepsis New/Unexplained Change in Mental Status Sepsis Action Taken by Nursing Laboratory Data 02/28/24 08:02 02/28/24 08:02 Lab Results 02/28/24 Range/Units 08:02 WBC 6.71 (4.8-10.8) K/ul RBC 5.12 (4.70-6.10) M/uL Hgb 16.1 (14.0-18.0) g/dl Hct 48.2 (42.0-52.0) % MCV 94.1 (80.0-100.0) fL MCH 31.4 (25.0-34.0) pg MCHC 33.4 (32.0-36.0) g/dL RDW Std Deviation 45.9 (36.4-46.3) fL RDW Coeff of Maura 13.2 (11.5-14.5) % Plt Count 185 (130-400) K/uL MPV 9.0 L (9.4-12.4) fL Immature Gran % (Auto) 0.6 % Neut % (Auto) 58.2 % Lymph % (Auto) 27.9 % [place] % (Auto) 10.1 % Eos % (Auto) 2.8 % Baso % (Auto) 0.4 % Neut # (Auto) 3.90 (1.40-6.50) K/uL Lymph # (Auto) 1.87 (1.20-3.40) K/uL [place] # (Auto) 0.68 H (0.11-0.59) K/uL Eos # (Auto) 0.19 (0.00-0.50) K/uL Baso # (Auto) 0.03 (0.00-0.20) K/uL Immature Gran # (Auto) 0.04 (0.01-0.20) K/uL PT 10.3 (9.0-12.0) Seconds INR 0.9 (0.9-1.1) Sodium 141 (136-145) mmol/L Potassium 3.9 (3.5-5.1) mmol/L Chloride 105 (98-107) mmol/L Carbon Dioxide 31 (21-32) mmol/L Anion Gap 5 (3-11) BUN 20 (6-23) mg/dl Creatinine 1.21 (0.6-1.4) mg/dl Est Cr Clr Drug Dosing 76.9 ml/min eGFR 66.03 BUN/Creatinine Ratio 16.5 (10-20) Glucose 139 H (70-99(Fasting)) mg/dl Calcium 9.7 (8.6-10.3) mg/dl Total Bilirubin 1.7 H (0.2-1.0) mg/dl AST 15 (13-39) U/L ALT 33 (7-52) U/L Alkaline Phosphatase 85 (34-104) U/L Troponin I High Sens 31.8 H (0-20) pg/ml Total Protein 7.3 (6.0-8.3) gm/dl Albumin 4.3 (3.4-5.0) gm/dl Globulin 3.0 (2.5-4.0) gm/dl Albumin/Globulin Ratio 1.4 (0.9-2) Lipase 41 (11-82) U/L Administered Medications Discontinued Medications Aspirin (Aspirin Chew 324 Mg) 324 mg PO NOW STA Stop: 02/28/24 08:57 Last Admin: 02/28/24 09:47 Dose: 324 mg Documented By: ML Hydralazine HCl (Hydralazine Hcl 20 Mg/Ml Vial) 10 mg IV NOW STA Stop: 02/28/24 08:06 Last Admin: 02/28/24 08:20 Dose: 10 mg Documented By: EFLISHA Imaging Data Radiologist's Impression: Chest X-Ray 02/28/24 08:00 XR chest 1V portable CLINICAL HISTORY: Chest pain, nonspecific COMPARISON STUDY: Chest CT September 22, 2021. Chest radiograph April 16, 2022. FINDINGS: Lung volumes are normal. There is no consolidation to suggest pneumonia. Minimal opacity along the left heart border favors atelectasis or a pericardial fat pad. There is no pneumothorax or pleural effusion. There is mild enlargement of the cardiac silhouette. Mediastinal contours are normal. There is no evidence for pulmonary edema. IMPRESSION: No acute cardiopulmonary findings. ACT 112: Negative or not required by law. Electronically signed by: Williams Willis M.D. 02/28/2024 8:37 AM Discharge Plan Visit Data Chief Complaint: Hypertension Stated Complaint: HIGH BLOOD PRESSURE ED Provider: Jarad Page Discharge Problem: Chest pain Forms Stand Alone Forms: [facility] [employer] Prescriptions Prescriptions: No Action losartan 25 mg tablet 50 mg PO QAM Qty: 180 3RF famotidine [Pepcid] 40 mg tablet 40 mg PO BID Qty: 60 2RF atorvastatin 80 mg tablet 80 mg PO QAM Qty: 90 3RF metoprolol tartrate 25 mg tablet 12.5 mg PO BID Qty: 90 3RF pantoprazole 40 mg tablet,delayed release (DR/EC) 40 mg PO DAILY Qty: 30 2RF nitroglycerin 0.4 mg tablet, sublingual 0.4 mg sublingual Q5M PRN (Reason: Chest Pain) Patient Comments: have never used Rx Instructions: do not exceed 3 doses per episode aspirin [Adult Low Dose Aspirin] 81 mg tablet,delayed release (DR/EC) 81 mg PO QAM topiramate [Topamax] 50 mg tablet 50 mg PO DAILY 30 Days Qty: 30 2RF sildenafil 100 mg tablet 100 mg PO UD PRN (Reason: sexual activity) Rx Instructions: administer 30 minutes to 4 hours before activity Referrals Referrals: Nancy Ray MD [Primary Care Provider] -
[2024-02-28] MEDS: hydrALAZINE HCL 20 MG/ML VIAL IV STA (08:20)
[2024-02-28 08:22] LABS: Basophils # (auto) 0.03 K/uL (0.00-0.20); Basophils % (auto) 0.4 %; Eosinophils # (auto) 0.19 K/uL (0.00-0.50); Eosinophils % (auto) 2.8 %; Hematocrit (blood only) 48.2 % (42.0-52.0); Hemoglobin 16.1 g/dl (14.0-18.0); Immature Granulocytes # (auto) 0.04 K/uL (0.01-0.20); Immature Granulocytes % (auto) 0.6 %; Lymphocytes # (auto) 1.87 K/uL (1.20-3.40); Lymphocytes % (auto) 27.9 %; Mean Corpuscular Hemoglobin 31.4 pg (25.0-34.0); Mean Corpuscular Hgb Conc 33.4 g/dL (32.0-36.0); Mean Corpuscular Volume 94.1 fL (80.0-100.0); Monocytes # (auto) 0.68 K/uL (0.11-0.59); Monocytes % (auto) 10.1 %; Neutrophils % (auto) 58.2 %; Platelet Count 185 K/uL (130-400); RDW Coefficient of Variation 13.2 % (11.5-14.5); RDW Standard Deviation 45.9 fL (36.4-46.3); Red Blood Count 5.12 M/uL (4.70-6.10); White Blood Count 6.71 K/ul (4.8-10.8)
[2024-02-28 08:31] LABS: Albumin Globulin Ratio 1.4 (0.9-2); Albumin Level 4.3 gm/dl (3.4-5.0); BUN Creatinine Ratio 16.5 (10-20); Bilirubin,Total 1.7 mg/dl (0.2-1.0); Calcium 9.7 mg/dl (8.6-10.3); Creatinine Clr Calc Pharmacy 76.9 ml/min; Potassium 3.9 mmol/L (3.5-5.1); Total Protein 7.3 gm/dl (6.0-8.3)
[2024-02-28 08:38] LABS: Troponin I High Sensitivity 31.8 pg/ml (0-20)
--- NOTE | 2024-02-28 08:38 | XRay Report ---
XR chest 1V portable CLINICAL HISTORY: Chest pain, nonspecific COMPARISON STUDY: Chest CT September 22, 2021. Chest radiograph April 16, 2022. FINDINGS: Lung volumes are normal. There is no consolidation to suggest pneumonia. Minimal opacity al meghan the left heart border favors atelectasis or a pericardial fat pad. There is no pneumothorax or pl eural effusion. There is mild enlargement of the cardiac silhouette. Mediastinal contours are normal. There is no evidence for pulmonary edema. IMPRESSION: No acute cardiopulmonary findings. ACT 112: Negative or not required by law. Electronically signed by: Williams Willis M.D. 02/28/2024 8:37 AM
[2024-02-28 08:40] LABS: INR 0.9 (0.9-1.1); Prothrombin Time 10.3 Seconds (9.0-12.0)
--- NOTE | 2024-02-28 09:16 | History & Physical Report ---
<Statement entered by Rubia Solis MD - 02/28/24 14:49> I have reviewed vital signs, chart notes, labs and imaging. I have personally seen, evaluated and examined the patient. I have also discussed the management of the patient with the ALEX and I agree with the exam findings documented in the history and physical examination and the documented assessment and plan unless otherwise stated below. 68-year-old man with history of coronary disease history of mid LAD stent in 2021 and negative dobutamine stress echo a year ago who came in with uncontrolled hypertension and stuttering chest pain which was substernal and bilateral shoulder/arm pain. Initially in the ED he was pain-free, EKG did not appear acutely ischemic with nonspecific anterolateral T-wave abnormality, high sensitive troponin was minimally elevated in the 30s he was planned for admission to evaluate his chest pain when he developed sudden onset of crushing substernal chest pain and was found to have STEMI. He was emergently taken to the [facility] by Dr. Kim who found complete occlusion of his LAD stent, this was treated with PCI. He is doing well post PCI when I saw him in ICU. Echo is in progress. He will continue DAPT with aspirin and Brilinta. Continues on high intensity statin and metoprolol.. Date of Service February 28, 2024 Assessment & Plan (1) STEMI (ST elevation myocardial infarction): Plan: Addendum: Nursing staff reached out to ED physician, as patient developed "crushing" chest pain while in the ED at approximately 10:50 AM. A repeat EKG was obtained that revealed acute STEMI in the anterolateral leads. Heart alert was called Interventional cardiology consult appreciated (Dr. Kim); patient will go for cardiac cath. (2) HTN (hypertension): Plan: Patient presented on 02/27 for hypertension, intermittent chest tightness, and shoulder pain x 2 days H/o AK and heart stents Patient initially reported he was chest pain-free at time of admission, then developed acute onset of crushing chest pain Troponin elevated at 31.8 on arrival; trend to peak Negative stress echo for ischemia on May 01, 2022 Continue home antihypertensive medications Given bradycardia, additional hydralazine 5 mg IV q8h as needed Continuous telemetry monitoring EKG as needed for acute onset of chest pain Cardiology consult appreciated (3) CAD (coronary artery disease): Plan: Continue aspirin and atorvastatin (4) Obesity: Plan: Started on Topamax 01/16 for weight loss Unable to take phentermine due to cardiac history; insurance does not cover GLP- 1s (5) History of non-ST elevation myocardial infarction (NSTEMI): Plan: S/p LAD stent April 2021 (6) Stented coronary artery: (7) Pre-diabetes: Plan Disposition: Admit to ICU Full code AHA diet VTE PPx: Heparin IV History of Present Illness Chief Complaint: Hypertension, intermittent chest tightness Primary Care Provider: Nancy Ray MD Bari is a 68-year-old male with PMH of HTN, CAD s/p SHIVA, NSTEMI, hypertriglyceridemia, prediabetes, Gilbert's syndrome, anxiety, and depression. He presented on 02/27 for hypertension and intermittent chest pain with radiation to the shoulders bilaterally x 2 days. Patient woke up this morning around 6:30 AM, and immediately after getting out of bed, his shoulders began to hurt and he felt chest discomfort. He regularly checks his blood pressure with a home BP cuff, and reports that his BP was around 200/98 at that time. Patient took his regular morning antihypertensives prior to coming to the hospital. He describes his chest pain as a dull, achy pain, and characterizes it more as "discomfort" than actual pain. The pain is in his shoulders bilaterally and radiates down to his elbow. This has been intermittent over the past 2 days, and it last for 20 minutes at a time before subsiding. He rates the pain 5/10 at worst; he is chest pain-free at time of admission. He reports that this does not feel like his prior episode of AK, where he felt like there was a "brick" on his chest. However, during his AK, he could feel it in both of his shoulders. He denies any sharp/stabbing pain between his shoulder blades, and notes that it is more of an achiness in the anterior shoulders and biceps bilaterally. He reports no recent exercise exertion or muscle strains to his knowledge. There are no alleviating/exacerbating factors for his current episode of chest discomfort/tightness. The first episode occurred when he was taking out the garbage the other day, however this can occur both at rest or with exertion and is generally unpredictable. Patient took regular morning medications today; no recent change in medications other than starting Topamax in December. He reports no side effects with Topamax. Patient manages his own medicine at home. No sick contacts. He denies smoking, tobacco use, or recent alcohol use. Additionally, he has had 2 days of diarrhea/loose stool; no blood in the stool; no recent antibiotic use; no recent change in diet. Patient's BP on arrival was 196/108; BP is 149/97 at time of admission. Vitals otherwise stable. ED course: Hydralazine 10 mg IV Aspirin 324 mg p.o. ROS: Patient endorses intermittent chest pain/tightness with radiation to both shoulders, soreness in both biceps, and diarrhea (both soft, and liquidy). Patient denies fever, chills, night-sweats, dizziness, lightheadedness, SHERMAN, chest pain at present, chest palpitations, SOB, cough, pleuritic CP, abdominal pain, back pain, pain between the shoulder blades, N/V, blood in stool, redness/swelling in the legs, or numbness/tingling in the arms. Allergies Allergy/AdvReac Type Severity Reaction Status Date / Time niacin Allergy Unknown Red/itchine Verified 02/28/24 10:01 ss simvastatin AdvReac Unknown Myalgias Verified 02/28/24 10:01 tamsulosin AdvReac Unknown "Didn't Verified 02/28/24 10:01 work" per pt trazodone AdvReac Unknown Fatigued, Verified 02/28/24 10:01 shaky and off balance Home Medications Medication Instructions Recorded Confirmed Type aspirin 81 mg tablet,delayed 81 mg PO QAM 04/23/21 02/28/24 History release (Adult Low Dose Aspirin) nitroglycerin 0.4 mg sublingual 0.4 mg sublingual Q5M PRN Chest 04/23/2101/31 History tablet Pain sildenafil 100 mg tablet 100 mg PO UD PRN sexual activity 01/14/23 02/28/24 History losartan 25 mg tablet 50 mg (2 x 25 mg) PO QAM #180 tabs 01/27/23 02/28/24 Rx famotidine 40 mg tablet (Pepcid) 40 mg PO BID #60 tabs 01/06/24 02/28/24 Rx atorvastatin 80 mg tablet 80 mg PO QAM #90 tabs 01/26/24 02/28/24 Rx metoprolol tartrate 25 mg tablet 12.5 mg (1/2 x 25 mg) PO BID #90 02/10/24 02/28/24 Rx tabs topiramate 50 mg tablet (Topamax) 0 mg PO DAILY 02/28/24 02/28/24 History Past Med/Surg History Problem List (Updated 02/28/24 @ 11:14 by Alan Melendrez PA-C) STEMI (ST elevation myocardial infarction) Chest tightness Obesity HTN (hypertension) Umbilical hernia without obstruction and without gangrene Obesity (BMI 35.0-39.9 without comorbidity) Abdominal hernia Arthritis of right knee History of colon polyps Benign localized prostatic hyperplasia with lower urinary tract symptoms (LUTS) Severe obesity (BMI 35.0-35.9 with comorbidity) Hypertriglyceridemia Vitamin D deficiency OWENS (dyspnea on exertion) Tinnitus ETD (eustachian tube dysfunction) Antiplatelet or antithrombotic long-term use History of non-ST elevation myocardial infarction (NSTEMI) Family history of premature coronary heart disease Presence of drug-eluting stent in anterior descending branch of left coronary artery Stented coronary artery mid-LAD. Resolute reji drug-eluting stent of 3.0/12mm CAD (coronary artery disease) 70% mid-LAD lesion stented [facility] 04/15/21. 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) Pre-diabetes (Chronic) Tubular adenoma of colon (Chronic) Medical History Snores Hemorrhoids History of bladder stone History of adenomatous polyp of colon Sensorineural hearing loss of both ears Tinnitus, bilateral Whitethorn syndrome HTN (hypertension) CAD (coronary artery disease) History of myocardial infarction NSTEMI (non-ST elevated myocardial infarction) Obesity History of COVID-19 Hypothyroidism Acid reflux disease Benign prostatic hyperplasia with lower urinary tract symptoms Diverticulitis of colon Hypercholesterolemia Surgical History History of endoscopy Hx of transurethral resection of prostate H/O heart artery stent History of cardiac catheterization History of colonoscopy History of carpal tunnel surgery of left wrist History of wisdom tooth extraction History of partial colectomy History of tonsillectomy H/O right inguinal hernia repair H/O hemorrhoidectomy Family History Father Myocardial infarction, Onset Age: 40 Hypertension Family/Other Diabetes Coronary heart disease Dyslipidemia Mother Dementia COPD (chronic obstructive pulmonary disease) Other No family history of adverse response to anesthesia Denies family history of Ovarian cancer Prostate cancer Breast cancer Colorectal cancer Colonic polyp Social History Smoking Status: Never smoker Tobacco Type: Cigarettes Age Started Using Tobacco: 17; Age Quit Using Tobacco: 34; packs per day: 0.5; Second Hand Exposure: No; Do You Dip or Chew Tobacco: No (quit 30+ years ago; advised); Hx Alcohol Use: Yes Alcohol type: beer and hard liquor Alcohol Intake Frequency Comment: Occasional weekend alcohol. Hx Substance Use: No Preferred Language: Luxembourger Communication Ability: Effective Visual Impairment: No Limitations Hearing Ability: Normal Supervisor Wheel [employer] Required: No Beliefs That Will Affect Care: None marital status: Single Current Living Situation: Alone current occupational status: employed current occupation: Part-time work-[employer] Feels Safe at Home: Yes Childhood Exposure to Second-Hand Smoke: Yes Diet: regular caffeine: No Dental Care, Regularly: No Physical Activity Frequency: Does not Exercise Seatbelt Use: always Sunscreen Use: No Assistive Devices: Glasses Review of Systems Review of Systems: See HPI above Physical Exam Physical Exam: General: no acute distress; anxious; pleasant affect; non-toxic appearing; cooperative; SpO2 95% on RA HEENT: normocephalic, atraumatic; no scleral icterus; PERRLA; vision and hearing grossly intact Neck: supple; trachea midline Skin: warm, dry without signs of tenting; no cyanosis; no rashes, bruising, lesions, or erythema noted CV: chest wall NTP; chest pain is not reproducible on exam; RR, bradycardic around 55 bpm; S1/S2 normal; no murmurs/rubs/gallops; pulses intact and symmetric at radial, DP, and PT Lungs: no acute respiratory distress; symmetrical chest wall expansion; clear breath sounds across all lung stinson w/o adventitious sounds; no wheezing ABD: Soft, NTP; umbilical hernia noted; BS present; no rebound/guarding; mild distention secondary to body habitus; no rashes or bruising noted on the abdomen or flanks MSK: no tics or fasciculations; no edema noted in the LEs b/l, nonerythematous; 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 Neuro: A&Ox3; normal mood and affect; fluent speech; no focal deficits; sensation is intact and symmetric in the upper extremities and lower extremities bilaterally Results & Data Results & Data Vital Signs (Past 12 Hours) Vital Signs Temp Pulse Pulse Resp BP BP Pulse Ox 02/28/24 08:26 61 02/28/24 08:21 50 L 18 96 02/28/24 08:20 149/97 H 02/28/24 08:20 149/97 H 02/28/24 08:20 149/97 H 02/28/24 08:18 49 L 15 95 02/28/24 08:03 96 02/28/24 08:03 55 L 17 196/108 H 96 02/28/24 07:53 36.5 C 65 18 170/119 H 96 O2 Del Method 02/28/24 08:26 02/28/24 08:21 02/28/24 08:20 02/28/24 08:20 02/28/24 08:20 02/28/24 08:18 02/28/24 08:03 Room Air 02/28/24 08:03 Room Air 02/28/24 07:53 Room Air Laboratory Results Abnormal lab results 02/28/24 Range/Units 08:02 MPV 9.0 L (9.4-12.4) fL [place] # (Auto) 0.68 H (0.11-0.59) K/uL Glucose 139 H (70-99(Fasting)) mg/dl Total Bilirubin 1.7 H (0.2-1.0) mg/dl Troponin I High Sens 31.8 H (0-20) pg/ml Diagnostic Findings Chest X-Ray 02/28/24 08:00 XR chest 1V portable CLINICAL HISTORY: Chest pain, nonspecific COMPARISON STUDY: Chest CT September 22, 2021. Chest radiograph April 16, 2022. FINDINGS: Lung volumes are normal. There is no consolidation to suggest pneumonia. Minimal opacity along the left heart border favors atelectasis or a pericardial fat pad. There is no pneumothorax or pleural effusion. There is mild enlargement of the cardiac silhouette. Mediastinal contours are normal. There is no evidence for pulmonary edema. IMPRESSION: No acute cardiopulmonary findings. ACT 112: Negative or not required by law. Electronically signed by: Williams Willis M.D. 02/28/2024 8:37 AM ECG Additional Comments: ECG at 7:59 revealed sinus bradycardia at 52 bpm on arrival; QTc 344 Repeat EKG at 10:[address] elevations in the anterolateral leads indicating acute infarct Code Status & VTE Plan Code Status Full code VTE Prophylaxis Plan VTE Prophylaxis will be ordered: Yes PG Care Time/CCT Total # of Minutes Spent Total Time Spent with Patient: Total time spent is greater than 50% in coordination of care (as documented) at patient's floor/unit and/or counseling patient: Coding [place] [address] INT INP/OBS CARE 3/75MIN Patient Type Established History Comprehensive Exam Comprehensive Medical Decision Making High Complexity Diagnoses STEMI (ST elevation myocardial infarction) I21.3 HTN (hypertension) I10 CAD (coronary artery disease) I25.10 Obesity E66.9 History of non-ST elevation myocardial infarction (NSTEMI) I25.2 Stented coronary artery Z95.5 Pre-diabetes R73.03
[2024-02-28] MEDS: ASPIRIN CHEW 324 MG PO STA (09:47)
--- NOTE | 2024-02-28 10:49 | Electrocardiogram Report ---
Test Reason : Blood Pressure : */* mmHG Vent. Rate : 52 BPM Atrial Rate : 52 BPM P-R Int : 164 ms QRS Dur : 88 ms QT Int : 370 ms P-R-T Axes : 58 7 69 degrees QTcB Int : 344 ms Sinus bradycardia Nonspecific T wave abnormality Abnormal ECG When compared with ECG of 11-Nov-2023 11:03, ST no longer elevated in Lateral leads Nonspecific T wave abnormality now evident in Anterolateral leads QT has shortened Confirmed by Jcarlos Payton ([id number]) on 02/28/2024 10:48:51 AM Referred By: Confirmed By: Jcarlos Payton
--- NOTE | 2024-02-28 10:59 | Emergency Department Note ---
ED Visit Note I was alerted by the bedside RN that the patient had developed some new onset substernal chest pain. EKG was obtained and is concerning for ST elevation CO in leads V2 through V6 with some T wave inversions in the inferior leads. On my assessment the patient is uncomfortable appearing, he is mildly diaphoretic. Heart alert was activated at this time at approximately 10:56 AM. Patient was ordered IV morphine and IV Zofran. I did inform the admitting hospitalist service and discussed the activation of heart alert with Alan Melednrez PA-C. EKG: (Per my interpretation) -Rate: 46 -Rhythm: Sinus bradycardia -Intervals: Within normal limits -ST changes: ST elevation in leads aVL, V2, V3, V4, V5, V6 -Time: 1055 *EKG concerning for STEMI, heart alert was activated Dr. Kim from interventional cardiology arrived at the bedside at approximately 11:03 AM. Case was discussed by myself with Dr. Kim and EKG reviewed. Patient was transferred to the cardiac catheterization lab in stable condition for further management. Critical care time: 33 minutes -Stabilization of patient with ST elevation myocardial infarction requiring interpretation of diagnostic studies including EKG, discussion with other healthcare providers/interventional cardiology, time spent at the bedside, arrangement of disposition to cardiac catheterization lab for emergent intervention. Jarad Page DO .
[2024-02-28] MEDS: MoRPHine SULFATE 4 MG/ML 1 ML CARP\\VIAL ONE (11:00)
[2024-02-28] MEDS: ONDANSETRON INJ 2 MG/ML 2 ML VIAL ONE (11:00)
[2024-02-28] MEDS ORDERED: NITROGLYCERIN SL 0.4 MG/TAB TAB SL PRN (11:03)
[2024-02-28] MEDS ORDERED: ONDANSETRON INJ 2 MG/ML 2 ML VIAL IV PRN (11:03)
[2024-02-28] MEDS ORDERED: ACETAMINOPHEN 325 MG TAB PO PRN (11:03)
[2024-02-28] MEDS ORDERED: hydrALAZINE HCL 20 MG/ML VIAL IV PRN (11:03)
[2024-02-28] MEDS: TICAGRELOR 90 MG TAB ONE (11:07)
--- NOTE | 2024-02-28 11:11 | Pre Anesthesia Assessment ---
Date of Service February 28, 2024 Pre Sedation Assessment Vital Signs Temp Pulse Pulse Resp BP BP Pulse Ox 02/28/24 11:07 182/106 H 02/28/24 11:07 182/106 H 02/28/24 11:00 46 L 14 96 02/28/24 10:48 62 19 96 02/28/24 10:40 146/91 H 02/28/24 10:40 146/91 H 02/28/24 10:40 146/91 H 02/28/24 10:36 50 L 16 94 02/28/24 10:30 152/95 H 02/28/24 10:21 51 L 15 95 02/28/24 10:20 144/94 H 02/28/24 10:10 151/87 H 02/28/24 10:10 151/87 H 02/28/24 10:10 151/87 H 02/28/24 10:06 50 L 14 96 02/28/24 10:00 50 L 15 95 02/28/24 10:00 154/93 H 02/28/24 09:57 50 L 16 95 02/28/24 09:50 154/100 H 02/28/24 09:39 50 L 19 95 02/28/24 09:30 50 L 21 95 02/28/24 09:30 153/85 H 02/28/24 09:30 153/85 H 02/28/24 09:21 54 L 20 95 02/28/24 09:20 150/104 H 02/28/24 09:10 131/105 H 02/28/24 09:09 52 L 15 95 02/28/24 09:06 54 L 20 95 02/28/24 09:01 152/92 H 02/28/24 08:51 52 L 14 95 02/28/24 08:50 150/95 H 02/28/24 08:48 52 L 16 95 02/28/24 08:40 153/88 H 02/28/24 08:36 54 L 15 95 02/28/24 08:30 54 L 15 95 02/28/24 08:30 155/93 H 02/28/24 08:26 61 02/28/24 08:21 50 L 18 96 02/28/24 08:20 149/97 H 02/28/24 08:20 149/97 H 02/28/24 08:20 149/97 H 02/28/24 08:18 49 L 15 95 02/28/24 08:03 96 02/28/24 08:03 55 L 17 196/108 H 96 02/28/24 07:53 97.7 F 65 18 170/119 H 96 O2 Del Method 02/28/24 11:07 02/28/24 11:07 02/28/24 11:00 02/28/24 10:48 02/28/24 10:40 02/28/24 10:40 02/28/24 10:40 02/28/24 10:36 02/28/24 10:30 02/28/24 10:21 02/28/24 10:20 02/28/24 10:10 02/28/24 10:10 02/28/24 10:10 02/28/24 10:06 02/28/24 10:00 02/28/24 10:00 02/28/24 09:57 02/28/24 09:50 02/28/24 09:39 02/28/24 09:30 02/28/24 09:30 02/28/24 09:30 02/28/24 09:21 02/28/24 09:20 02/28/24 09:10 02/28/24 09:09 02/28/24 09:06 02/28/24 09:01 02/28/24 08:51 02/28/24 08:50 02/28/24 08:48 02/28/24 08:40 02/28/24 08:36 02/28/24 08:30 02/28/24 08:30 02/28/24 08:26 02/28/24 08:21 02/28/24 08:20 02/28/24 08:20 02/28/24 08:20 02/28/24 08:18 02/28/24 08:03 Room Air 02/28/24 08:03 Room Air 02/28/24 07:53 Room Air Cardiovascular + regular rate Respiratory + respiratory effort normal Pre-Sedation Airway Assessment Smoking Status: Never smoker Hx Sleep Apnea: No Hx Difficult Intubation: No Short, Thick Neck: No Thyromental Distance: > or= 3.5 Finger Breadths Oral Cavity: + Dental Abnormalities Mallampati Class: III ASA: ASA4 Procedure Planning Contraindications for Sedation: none Current Medications Reviewed: Yes Notes The planned sedation has been discussed with the patient. Informed Consent was obtained. I have identified the patient, determined the appropriateness of sedation and have assessed the patient immediately prior to the procedure. All medicine(s) and interventions are by my order.
--- NOTE | 2024-02-28 11:13 | Cardiology Consultation ---
Date of Consultation February 28, 2024 Assessment & Plan (1) STEMI (ST elevation myocardial infarction): Plan Presentation consistent with Anterior STEMI and recommend proceeding with emergent cardiac catheterization and likely primary PCI. No apparent contraindications to procedure. Discussed risks, benefits, alternatives of procedure with patient and they are willing to proceed. Further recommendations pending findings of coronary angiography. History of Present Illness Attending Physician: Rubia Solis MD History of Present Illness Mr. Moreno is a 68-year-old man here with acute chest pain and ECG concerning for acute MT. Patient seen emergently in the ED after heart alert activated. 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 Past cardiac history remarkable for NSTEMI 04/2021. Treated with single SHIVA (3.0 x 12 mm [place]) to mid LAD at [facility] and [place], required aspirin desensitization. Cardiac risk factors include hypertension, dyslipidemia, family history of premature CAD, class I obesity and prior remote tobacco use. Has been having stuttering chest pain radiating to her shoulders bilaterally for the last 2 days. This morning around 6:30 AM was awoken with recurrent chest discomfort. Initially on presentation (around 8 AM) chest pain-free, hypertensive with BPs to 190s, ECG unremarkable, HS TropI 36. 2 hours later developed severe substernal chest pain, diaphoresis and repeat ECG showed sinus bradycardia with anterior ST elevations. Allergies Allergy/AdvReac Type Severity Reaction Status Date / Time niacin Allergy Unknown Red/itchine Verified 02/28/24 10:01 ss simvastatin AdvReac Unknown Myalgias Verified 02/28/24 10:01 tamsulosin AdvReac Unknown "Didn't Verified 02/28/24 10:01 work" per pt trazodone AdvReac Unknown Fatigued, Verified 02/28/24 10:01 shaky and off balance Home Medications Medication Instructions Recorded Confirmed Type aspirin 81 mg tablet,delayed 81 mg PO QAM 04/23/21 02/28/24 History release (Adult Low Dose Aspirin) nitroglycerin 0.4 mg sublingual 0.4 mg sublingual Q5M PRN Chest 04/23/21 02/28/24 History tablet Pain sildenafil 100 mg tablet 100 mg PO UD PRN sexual activity 01/14/23 02/28/24 History losartan 25 mg tablet 50 mg (2 x 25 mg) PO QAM #180 tabs 01/27/23 02/28/24 Rx famotidine 40 mg tablet (Pepcid) 40 mg PO BID #60 tabs 01/06/24 02/28/24 Rx atorvastatin 80 mg tablet 80 mg PO QAM #90 tabs 01/26/24 02/28/24 Rx metoprolol tartrate 25 mg tablet 12.5 mg (1/2 x 25 mg) PO BID #90 02/10/24 02/28/24 Rx tabs topiramate 50 mg tablet (Topamax) 0 mg PO DAILY 02/28/24 02/28/24 History Patient History Medical History Snores Hemorrhoids History of bladder stone History of adenomatous polyp of colon Sensorineural hearing loss of both ears Tinnitus, bilateral Brighton syndrome HTN (hypertension) CAD (coronary artery disease) History of myocardial infarction NSTEMI (non-ST elevated myocardial infarction) Obesity History of COVID-19 Hypothyroidism Acid reflux disease Benign prostatic hyperplasia with lower urinary tract symptoms Diverticulitis of colon Hypercholesterolemia Surgical History History of endoscopy Hx of transurethral resection of prostate H/O heart artery stent History of cardiac catheterization History of colonoscopy History of carpal tunnel surgery of left wrist History of wisdom tooth extraction History of partial colectomy History of tonsillectomy H/O right inguinal hernia repair H/O hemorrhoidectomy Family History Father Myocardial infarction, Onset Age: 40 Hypertension Family/Other Diabetes Coronary heart disease Dyslipidemia Mother Dementia COPD (chronic obstructive pulmonary disease) Other No family history of adverse response to anesthesia Denies family history of Ovarian cancer Prostate cancer Breast cancer Colorectal cancer Colonic polyp Social History Smoking Status: Never smoker Tobacco Type: Cigarettes Age Started Using Tobacco: 17; Age Quit Using Tobacco: 34; packs per day: 0.5; Second Hand Exposure: No; Do You Dip or Chew Tobacco: No (quit 30+ years ago; advised); Hx Alcohol Use: Yes Alcohol type: beer and hard liquor Alcohol Intake Frequency Comment: Occasional weekend alcohol. Hx Substance Use: No Preferred Language: Prydeinig Communication Ability: Effective Visual Impairment: No Limitations Hearing Ability: Normal Rehanger Required: No Beliefs That Will Affect Care: None marital status: Single Current Living Situation: Alone current occupational status: employed current occupation: Part-time work-[place] Feels Safe at Home: Yes Childhood Exposure to Second-Hand Smoke: Yes Diet: regular caffeine: No Dental Care, Regularly: No Physical Activity Frequency: Does not Exercise Seatbelt Use: always Sunscreen Use: No Assistive Devices: Glasses Review of Systems Review of Systems: All systems reviewed & are unremarkable except as noted in HPI & below Physical Exam Physical Exam: General: Uncomfortable, diaphoretic HEENT: Sclerae anicteric Lungs: Clear anteriorly Cardiac: Regular, bradycardic Vascular: 2+ radial Abdomen: Soft, nontender Extremities: Well perfused, no peripheral edema Neuro: Nonfocal Psych: Alert orient x3, normal affect and mood Results & Data Vital Signs (Past 12 Hours) Vital Signs Temp Pulse Pulse Resp BP BP Pulse Ox 02/28/24 11:07 182/106 H 02/28/24 11:07 182/106 H 02/28/24 11:00 46 L 14 96 02/28/24 10:48 62 19 96 02/28/24 10:40 146/91 H 02/28/24 10:40 146/91 H 02/28/24 10:40 146/91 H 02/28/24 10:36 50 L 16 94 02/28/24 10:30 152/95 H 02/28/24 10:21 51 L 15 95 02/28/24 10:20 144/94 H 02/28/24 10:10 151/87 H 02/28/24 10:10 151/87 H 02/28/24 10:10 151/87 H 02/28/24 10:06 50 L 14 96 02/28/24 10:00 50 L 15 95 02/28/24 10:00 154/93 H 02/28/24 09:57 50 L 16 95 02/28/24 09:50 154/100 H 02/28/24 09:39 50 L 19 95 02/28/24 09:30 50 L 21 95 02/28/24 09:30 153/85 H 02/28/24 09:30 153/85 H 02/28/24 09:21 54 L 20 95 02/28/24 09:20 150/104 H 02/28/24 09:10 131/105 H 02/28/24 09:09 52 L 15 95 02/28/24 09:06 54 L 20 95 02/28/24 09:01 152/92 H 02/28/24 08:51 52 L 14 95 02/28/24 08:50 150/95 H 02/28/24 08:48 52 L 16 95 02/28/24 08:40 153/88 H 02/28/24 08:36 54 L 15 95 02/28/24 08:30 54 L 15 95 02/28/24 08:30 155/93 H 02/28/24 08:26 61 02/28/24 08:21 50 L 18 96 02/28/24 08:20 149/97 H 02/28/24 08:20 149/97 H 02/28/24 08:20 149/97 H 02/28/24 08:18 49 L 15 95 02/28/24 08:03 96 02/28/24 08:03 55 L 17 196/108 H 96 02/28/24 07:53 97.7 F 65 18 170/119 H 96 O2 Del Method 02/28/24 11:07 02/28/24 11:07 02/28/24 11:00 02/28/24 10:48 02/28/24 10:40 02/28/24 10:40 02/28/24 10:40 02/28/24 10:36 02/28/24 10:30 02/28/24 10:21 02/28/24 10:20 02/28/24 10:10 02/28/24 10:10 02/28/24 10:10 02/28/24 10:06 02/28/24 10:00 02/28/24 10:00 02/28/24 09:57 02/28/24 09:50 02/28/24 09:39 02/28/24 09:30 02/28/24 09:30 02/28/24 09:30 02/28/24 09:21 02/28/24 09:20 02/28/24 09:10 02/28/24 09:09 02/28/24 09:06 02/28/24 09:01 02/28/24 08:51 02/28/24 08:50 02/28/24 08:48 02/28/24 08:40 02/28/24 08:36 02/28/24 08:30 02/28/24 08:30 02/28/24 08:26 02/28/24 08:21 02/28/24 08:20 02/28/24 08:20 02/28/24 08:20 02/28/24 08:18 02/28/24 08:03 Room Air 02/28/24 08:03 Room Air 02/28/24 07:53 Room Air PG Care Time/CCT Total # of Minutes Spent Total Time Spent with Patient: Total time spent is greater than 50% in coordination of care (as documented) at patient's floor/unit and/or counseling patient: Coding Level of Care Code 52496 ER DEPT VISIT MOD LVL 4 Diagnoses STEMI (ST elevation myocardial infarction) I21.3
[2024-02-28] MEDS: ONDANSETRON INJ 2 MG/ML 2 ML VIAL IV STA (11:15)
[2024-02-28] MEDS: MoRPHine SULFATE 4 MG/ML 1 ML CARP\\VIAL IV STA (11:15)
[2024-02-28] MEDS: niCARdipine 2,000 MCG/20 ML SYR ONE (11:20)
[2024-02-28] MEDS: LIDOCAINE 1% LOCAL 20 ML VIAL ONE (11:21)
[2024-02-28] MEDS: NITROGLYCERIN/D5W 100MCG/ML 20ML SYR ONE (11:21)
[2024-02-28] MEDS: OPTIRAY 350 ONE (11:59)
[2024-02-28] MEDS: fentaNYL citrate PF 100 MCG/2 ML VIAL ONE (12:00)
[2024-02-28] MEDS: MIDAZOLAM HCL 1 MG/ML 2ML VIAL ONE (12:00)
[2024-02-28] MEDS: HEPARIN (PORCINE) 1000 UNIT/ML 10 ML (CATH LAB USE ONLY) ONE (12:00)
--- NOTE | 2024-02-28 12:24 | Post Anesthesia Assessment ---
Date of Service February 28, 2024 Post Sedation Assessment Vital Signs Temp Pulse Pulse Resp BP BP Pulse Ox 02/28/24 11:07 182/106 H 02/28/24 11:07 182/106 H 02/28/24 11:00 46 L 14 96 02/28/24 10:48 62 19 96 02/28/24 10:40 146/91 H 02/28/24 10:40 146/91 H 02/28/24 10:40 146/91 H 02/28/24 10:36 50 L 16 94 02/28/24 10:30 152/95 H 02/28/24 10:21 51 L 15 95 02/28/24 10:20 144/94 H 02/28/24 10:10 151/87 H 02/28/24 10:10 151/87 H 02/28/24 10:10 151/87 H 02/28/24 10:06 50 L 14 96 02/28/24 10:00 50 L 15 95 02/28/24 10:00 154/93 H 02/28/24 09:57 50 L 16 95 02/28/24 09:50 154/100 H 02/28/24 09:39 50 L 19 95 02/28/24 09:30 50 L 21 95 02/28/24 09:30 153/85 H 02/28/24 09:30 153/85 H 02/28/24 09:21 54 L 20 95 02/28/24 09:20 150/104 H 02/28/24 09:10 131/105 H 02/28/24 09:09 52 L 15 95 02/28/24 09:06 54 L 20 95 02/28/24 09:01 152/92 H 02/28/24 08:51 52 L 14 95 02/28/24 08:50 150/95 H 02/28/24 08:48 52 L 16 95 02/28/24 08:40 153/88 H 02/28/24 08:36 54 L 15 95 02/28/24 08:30 54 L 15 95 02/28/24 08:30 155/93 H 02/28/24 08:26 61 02/28/24 08:21 50 L 18 96 02/28/24 08:20 149/97 H 02/28/24 08:20 149/97 H 02/28/24 08:20 149/97 H 02/28/24 08:18 49 L 15 95 02/28/24 08:03 96 02/28/24 08:03 55 L 17 196/108 H 96 02/28/24 07:53 97.7 F 65 18 170/119 H 96 O2 Del Method 02/28/24 11:07 02/28/24 11:07 02/28/24 11:00 02/28/24 10:48 02/28/24 10:40 02/28/24 10:40 02/28/24 10:40 02/28/24 10:36 02/28/24 10:30 02/28/24 10:21 02/28/24 10:20 02/28/24 10:10 02/28/24 10:10 02/28/24 10:10 02/28/24 10:06 02/28/24 10:00 02/28/24 10:00 02/28/24 09:57 02/28/24 09:50 02/28/24 09:39 02/28/24 09:30 02/28/24 09:30 02/28/24 09:30 02/28/24 09:21 02/28/24 09:20 02/28/24 09:10 02/28/24 09:09 02/28/24 09:06 02/28/24 09:01 02/28/24 08:51 02/28/24 08:50 02/28/24 08:48 02/28/24 08:40 02/28/24 08:36 02/28/24 08:30 02/28/24 08:30 02/28/24 08:26 02/28/24 08:21 02/28/24 08:20 02/28/24 08:20 02/28/24 08:20 02/28/24 08:18 02/28/24 08:03 Room Air 02/28/24 08:03 Room Air 02/28/24 07:53 Room Air Recovery Score Activity: Moves 4 extremities Respiration: Deep Breath/Cough Circulation: +/-20% PreAnes Value Consciousness: Fully Awake Oxygen Saturation: O2 needed for >90% Discharge Sedation Level of Care: Fast Track Phase II Post Sedation Plan On clinical assessment, the patient appears to have tolerated the sedation without complications. Patient is recovering as anticipated. Patient will continue to be monitored by nursing and may be discharged when sedation discharge criteria are met per below protocol. Upon Completions of procedure up to 15 minutes continue every 5 minute vital signs and the P.A.R. score; then discharge to a Phase I or Fast Track to Phase II per the following guidelines: * Discharge Patient to appropriate Phase II area if PAR is 8 or greater or return to pre- procedure baseline. The post - procedure orders will be as directed. * If PAR score is less than 8 or not return to pre-procedure baseline then patient will follow Phase I monitoring till PAR is reached for Phase II. The Phase I may be done in procedure room or may call to secure a Phase I area. * If naloxone or flumazenil are used for reversal, hold in Phase I for continued monitoring from when last reversal dose was given for a minimum of 60 minutes or longer pending the nurse and/or physician discretion of patient condition before discharge to Phase II. Please call the Sedation Physician to re-evaluate and complete post-note for discharge to Phase II area. Do NOT discharge from procedure sedation or Phase 1 until post- sedation evaluation note is complete by procedure /sedation MD Sedation Discharge Instructions to be given to the patient at discharge to home.
--- NOTE | 2024-02-28 12:43 | Cardiac Catheterization ---
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 Cardiac Status Clinical evaluation leading to the procedure CAD Presenation: STEMI Anginal Classification: CCS IV Diagnostic Physicians Name: Russ Kim MD Closure Device Recommendations: PCI without planned CABG Cardiac Cath Procedure Full Procedure Date February 28, 2024 Pre-Procedure Diagnosis Pre-Procedure Diagnosis: STEMI AUC Score AUC Score: 9 Post-Procedure Diagnosis Post-Procedure Diagnosis: Severe CAD, Successful PCI and Normal Intracardiac Pressures Procedure(s) Performed Procedure(s) Performed: Coronary Angiography, Left Heart Cath, Drug Eluting Stent and IVUS Residency Coordinator Russ Kim MD Estimated Blood Loss Estimated Blood Loss: 25 Medication(s) Medication(s): Fentanyl, Heparin, Lidocaine 1%, Nicardipine, Nitroglycerin and Versed Medication(s): Ticagrelor Summary of Findings Indication: STEMI/Heart Alert. History of NSTEMI with 3.0 x 12 mm Sunny to mid LAD 04/2021 Access: 6 Fr slender right radial artery Catheters: EBU 3.5 guide, diagnostic JR4 Findings: LM -normal caliber, no significant disease LAD -medium caliber, 25% proximal disease, 100% acute stent thrombosis of mid LAD stent. Jailed first septal with 80% ostial stenosis Circumflex -medium caliber, AV groove circumflex without significant disease. High OM1 with 20 to 30% proximal disease. Large OM 3 without disease. RCA -dominant, medium caliber, 40-50% latemid stenosis. Distal luminal irregularities. Medium PDA, PLB without significant disease. LVEDP -13 -- PCI -- Antithrombotic therapy: Heparin, ticagrelor Procedure: Left main cannulated with EBU 3.5 guide BMW wire passed across lesion into distal vessel Mid LAD lesion predilated with 2.5 compliant balloon Prowater wire placed into large D2 with takeoff just after stent Spears IVUS catheter placed to mid LAD. Pullback revealed mild eccentric plaq ue distal to prior stent and extending across takeoff of D2. Diffuse thrombus/in-stent restenosis. Stent appeared mildly undersized well apposed. Mild eccentric plaque proximal to stent Dilated lesion stented with 3.0 x 28 mm Xience drug-eluting stent Stent post-dilated with 4.0 noncompliant balloon Repeat IVUS showed well-expanded, well apposed stent with no apparent edge complications. IC vasodilators administered for spasm Post procedure ANNI 3 flow, stent well expanded with minimal residual stenosis had ANNI-3 flow in jailed D2 and no apparent cardiac complications. Arterial Closure: TR band Summary: 1. Anterior STEMI. Late mid-LAD stent thrombosis 2. Mild to moderate non-culprit coronary artery disease -40-50% mid RCA 20-30% proximal OM1 3. Normal intracardiac filling pressure 4. Successful PCI of mid LAD stent thrombosis with single SHIVA extending across prior stent (Xience 3.0 x 28 mm postdilated with 4.0 NC). Recommendations: Admit to ICU for continued monitoring Loaded with Ticagrelor 180mg Continue dual-antiplatelet therapy for at least 1 year. Extended P2Y12 in the stent thrombosis/overlapping stents. Trend troponins until peak, Check Echo Uptitrate beta-nayla/LEEROY as BP allows High-dose statin Consult cardiac Rehab Hemodynamics Rest Ao:: 155/93/120 Final Ao: 122/72/91 LV: 122/13 Recommendations Recommendations: PCI without planned CABG Specimens Specimens: None Radiation Exposure (mGy) 2044 Contrast (mls) 110 Anesthesia Moderate 2601-8452 Procedural Complication(s) None Disposition ICU I attest to the content of the Intraoperative Record and any orders documented therein. Any exceptions are noted below. [facility] Card Cath Procedure Codes Cardiac Catheterization Procedure 1: Cardiovascular Cath Procedures: 51626 Coronaries and LHC (+/-LV) Therapeutic Services & Ancillary Procedure 1: Cardiovascular Tx and Anc Procedures: 16644 IV Ultrasound (Coronary or Graft) Moderate Sedation Procedure 1: Sedation/Anesthesia: 00052 Mod Sedation by the same physician;Init15 Min Child Age 5 & Up Procedure 2: Sedation/Anesthesia: 88678 Mod Sedation by the same physician; Ea [id number] Minutes Stenting Procedure 1: Cardiovascular Stent Procedures: 80839 Perc transluminal revascularization of acute sub/total occl, aMI PG Care Time/CCT Total # of Minutes Spent Total Time Spent with Patient: Total time spent is greater than 50% in coordination of care (as documented) at patient's floor/unit and/or counseling patient:
[2024-02-28] MEDS: ICU Protocol for HYPERglycemia SCH (13:00)
[2024-02-28 13:38] VITALS: TEMP 97.5
--- NOTE | 2024-02-28 14:11 | Pulmonary Consultation ---
Date of Consultation February 28, 2024 Assessment & Plan (1) STEMI (ST elevation myocardial infarction): (2) Chest tightness: (3) Obesity: (4) HTN (hypertension): (5) Hypertriglyceridemia: (6) CAD (coronary artery disease): (7) Ex-smoker: Plan -- STEMI S/p restenting in the LAD History of stent in the mid LAD for NSTEMI 04/2021. He required aspirin desensitization at that time Continue with dual antiplatelet therapy Continue with statin Continue with beta-nayla if heart rate permits along with LEEROY inhibitor/ARB --Hypertension On metoprolol 12.5 mg twice daily Losartan 50 mg --Elevation of T. bili AST ALT within normal limit Patient had elevation of T. bili even in October 2023 Continue to trend --GERD On Pepcid 40 mg twice daily -- Probable MATTHEW/OHS Recommend outpatient polysomnography --Prophylaxis VTE: IPC GI: Pepcid Lines: Peripheral Diet: Cardiac Plan: Strict in and out Continue with dual antiplatelet therapy Trend troponin Follow-up 2D echo Please note the above document was generated using voice recognition software. It may contain grammatical, syntax or spelling errors.Any formal questions or concerns about the content, text or information contained within the body of this dictation should be directly addressed to the provider for clarification. History of Present Illness Attending Physician: Rubia Solis MD History of Present Illness 68-year-old male was admitted to the hospital for chest pain Past medical history: Coronary artery disease s/p stent 2021, hypertension, obesity, prediabetes, dyslipidemia Patient had code STEMI and he was taken to the [facility] He got restented into the LAD. At the time of examination in the ICU, patient was not in any distress His heart rate was in the low 50s Systolic blood pressure in the 140s He denied any chest pain Patient stated that he stopped taking his antiplatelet therapy approximately a year ago as per the recommendation from cardiology He is compliant with rest of his medication. He has been having issues with chest pain since last 2 days. Initially it happened on exertion but today in the morning he woke up with pain but she ended up to the ER Social history: Socially smoked for 5 years quit at the age of 32. Heavy alcohol use. Used to work in [employer]. Currently retired No pets at home para no history of lung cancer in the family Allergies Allergy/AdvReac Type Severity Reaction Status Date / Time niacin Allergy Unknown Red/itchine Verified 02/28/24 10:01 ss simvastatin AdvReac Unknown Myalgias Verified 02/28/24 10:01 tamsulosin AdvReac Unknown "Didn't Verified 02/28/24 10:01 work" per pt trazodone AdvReac Unknown Fatigued, Verified 02/28/24 10:01 shaky and off balance Home Medications Medication Instructions Recorded Confirmed Type aspirin 81 mg tablet,delayed 81 mg PO QAM 04/23/21 02/28/24 History release (Adult Low Dose Aspirin) nitroglycerin 0.4 mg sublingual 0.4 mg sublingual Q5M PRN Chest 04/23/21 02/28/24 History tablet Pain sildenafil 100 mg tablet 100 mg PO UD PRN sexual activity 01/14/23 02/28/24 History losartan 25 mg tablet 50 mg (2 x 25 mg) PO QAM #180 tabs 01/27/23 02/28/24 Rx famotidine 40 mg tablet (Pepcid) 40 mg PO BID #60 tabs 01/06/24 02/28/24 Rx atorvastatin 80 mg tablet 80 mg PO QAM #90 tabs 01/26/24 02/28/24 Rx metoprolol tartrate 25 mg tablet 12.5 mg (1/2 x 25 mg) PO BID #90 02/10/24 02/28/24 Rx tabs topiramate 50 mg tablet (Topamax) 0 mg PO DAILY 02/28/24 02/28/24 History Patient History Medical History Snores Hemorrhoids History of bladder stone History of adenomatous polyp of colon Sensorineural hearing loss of both ears Tinnitus, bilateral Boyd syndrome HTN (hypertension) CAD (coronary artery disease) History of myocardial infarction NSTEMI (non-ST elevated myocardial infarction) Obesity History of COVID-19 Hypothyroidism Acid reflux disease Benign prostatic hyperplasia with lower urinary tract symptoms Diverticulitis of colon Hypercholesterolemia Surgical History History of endoscopy Hx of transurethral resection of prostate H/O heart artery stent History of cardiac catheterization History of colonoscopy History of carpal tunnel surgery of left wrist History of wisdom tooth extraction History of partial colectomy History of tonsillectomy H/O right inguinal hernia repair H/O hemorrhoidectomy Family History Father Myocardial infarction, Onset Age: 40 Hypertension Family/Other Diabetes Coronary heart disease Dyslipidemia Mother Dementia COPD (chronic obstructive pulmonary disease) Other No family history of adverse response to anesthesia Denies family history of Ovarian cancer Prostate cancer Breast cancer Colorectal cancer Colonic polyp Social History Smoking Status: Former smoker Tobacco Type: Cigarettes Age Started Using Tobacco: 17; Age Quit Using Tobacco: 34; packs per day: 0.5; Second Hand Exposure: No; Do You Dip or Chew Tobacco: No (quit 30+ years ago; advised); Hx Alcohol Use: Yes Alcohol type: beer and hard liquor Alcohol Intake Frequency Comment: Occasional weekend alcohol. Hx Substance Use: No Preferred Language: B[place]ian Communication Ability: Effective Visual Impairment: No Limitations Hearing Ability: Normal Wool Carder Required: No Beliefs That Will Affect Care: None marital status: Single Current Living Situation: Other current occupational status: employed current occupation: Part-time work-[employer] Feels Safe at Home: Yes Safety Concerns: Feels Safe At This Time Childhood Exposure to Second-Hand Smoke: Yes Diet: regular caffeine: No Dental Care, Regularly: No Physical Activity Frequency: Does not Exercise Seatbelt Use: always Sunscreen Use: No Assistive Devices: Glasses Review of Systems 2 Review of Systems: All systems reviewed & are unremarkable except as noted in HPI & below Physical Exam 2 Physical Exam: Constitutional: No acute distress HEENT: EOMI, PERRLA Respiratory system: Good air entry bilaterally, no wheeze, rhonchi, mild crackles bilateral lower lobes CVS: S1-S2 positive, no murmurs or gallops, bradycardia Abdomen: Soft, nontender, nondistended, positive bowel sounds x4, obese Extremities: +2 pulses bilaterally radialis/ dorsalis pedis, no cyanosis, no edema Neuro: Awake alert oriented x3 Psych: Normal mood and affect G/U: No Marquez Skin: no rashes, warm and dry Lymphatic: no cervical or axillary lymphadenopathy Results & Data Results & Data Vital Signs (Past 12 Hours) Vital Signs Temp Pulse Pulse Resp BP BP Pulse Ox 02/28/24 13:30 48 L 18 96 02/28/24 13:30 153/94 H 02/28/24 13:15 48 L 21 96 02/28/24 13:15 134/80 02/28/24 13:15 134/80 02/28/24 13:12 49 L 23 95 02/28/24 13:06 02/28/24 13:06 36.4 C L 02/28/24 13:04 55 L 02/28/24 13:00 136/83 02/28/24 12:57 48 L 23 95 02/28/24 12:45 127/75 02/28/24 12:39 53 L 18 95 02/28/24 12:30 53 L 130/73 02/28/24 12:30 130/73 02/28/24 12:18 137/79 02/28/24 12:18 57 L 18 96 02/28/24 11:07 182/106 H 02/28/24 11:07 182/106 H 02/28/24 11:00 46 L 14 96 02/28/24 10:48 62 19 96 02/28/24 10:40 146/91 H 02/28/24 10:40 146/91 H 02/28/24 10:40 146/91 H 02/28/24 10:36 50 L 16 94 02/28/24 10:30 152/95 H 02/28/24 10:21 51 L 15 95 02/28/24 10:20 144/94 H 02/28/24 10:10 151/87 H 02/28/24 10:10 151/87 H 02/28/24 10:10 151/87 H 02/28/24 10:06 50 L 14 96 02/28/24 10:00 50 L 15 95 02/28/24 10:00 154/93 H 02/28/24 09:57 50 L 16 95 02/28/24 09:50 154/100 H 02/28/24 09:39 50 L 19 95 02/28/24 09:30 50 L 21 95 02/28/24 09:30 153/85 H 02/28/24 09:30 153/85 H 02/28/24 09:21 54 L 20 95 02/28/24 09:20 150/104 H 02/28/24 09:10 131/105 H 02/28/24 09:09 52 L 15 95 02/28/24 09:06 54 L 20 95 02/28/24 09:01 152/92 H 02/28/24 08:51 52 L 14 95 02/28/24 08:50 150/95 H 02/28/24 08:48 52 L 16 95 02/28/24 08:40 153/88 H 02/28/24 08:36 54 L 15 95 02/28/24 08:30 54 L 15 95 02/28/24 08:30 155/93 H 02/28/24 08:26 61 02/28/24 08:21 50 L 18 96 02/28/24 08:20 149/97 H 02/28/24 08:20 149/97 H 02/28/24 08:20 149/97 H 02/28/24 08:18 49 L 15 95 02/28/24 08:03 96 02/28/24 08:03 55 L 17 196/108 H 96 02/28/24 07:53 36.5 C 65 18 170/119 H 96 O2 Del Method 02/28/24 13:30 Room Air 02/28/24 13:30 02/28/24 13:15 Room Air 02/28/24 13:15 02/28/24 13:15 02/28/24 13:12 Room Air 02/28/24 13:06 Room Air 02/28/24 13:06 02/28/24 13:04 02/28/24 13:00 02/28/24 12:57 Room Air 02/28/24 12:45 02/28/24 12:39 Room Air 02/28/24 12:30 02/28/24 12:30 02/28/24 12:18 02/28/24 12:18 Room Air 02/28/24 11:07 02/28/24 11:07 02/28/24 11:00 02/28/24 10:48 02/28/24 10:40 02/28/24 10:40 02/28/24 10:40 02/28/24 10:36 02/28/24 10:30 02/28/24 10:21 02/28/24 10:20 02/28/24 10:10 02/28/24 10:10 02/28/24 10:10 02/28/24 10:06 02/28/24 10:00 02/28/24 10:00 02/28/24 09:57 02/28/24 09:50 02/28/24 09:39 02/28/24 09:30 02/28/24 09:30 02/28/24 09:30 02/28/24 09:21 02/28/24 09:20 02/28/24 09:10 02/28/24 09:09 02/28/24 09:06 02/28/24 09:01 02/28/24 08:51 02/28/24 08:50 02/28/24 08:48 02/28/24 08:40 02/28/24 08:36 02/28/24 08:30 02/28/24 08:30 02/28/24 08:26 02/28/24 08:21 02/28/24 08:20 02/28/24 08:20 02/28/24 08:20 02/28/24 08:18 02/28/24 08:03 Room Air 02/28/24 08:03 Room Air 02/28/24 07:53 Room Air Laboratory Results 02/28/24 08:02 02/28/24 08:02 PG Care Time/CCT Total # of Minutes Spent Total Time Spent with Patient: Total time spent is greater than 50% in coordination of care (as documented) at patient's floor/unit and/or counseling patient: Coding Level of Care Code 71358 INT INP/OBS CARE 3/75MIN Diagnoses STEMI (ST elevation myocardial infarction) I21.3 Chest tightness R07.89 Obesity E66.9 HTN (hypertension) I10 Hypertriglyceridemia E78.1 CAD (coronary artery disease) I25.10 Ex-smoker Z87.891
--- NOTE | 2024-02-28 15:10 | Electrocardiogram Report ---
Test Reason : Blood Pressure : */* mmHG Vent. Rate : 51 BPM Atrial Rate : 51 BPM P-R Int : 164 ms QRS Dur : 88 ms QT Int : 426 ms P-R-T Axes : 47 0 23 degrees QTcB Int : 392 ms Sinus bradycardia Nonspecific T wave abnormality Abnormal ECG When compared with ECG of 28-Feb-2024 10:55, (unconfirmed) ST no longer depressed in Inferior leads ST no longer elevated in Lateral leads T wave inversion no longer evident in Inferior leads Nonspecific T wave abnormality now evident in Anterolateral leads Confirmed by Jcarlos Payton ([id number]) on 02/28/2024 3:10:35 PM Referred By: REFERRED SELF Confirmed By: Jcarlos Payton
--- NOTE | 2024-02-28 16:16 | XCELERA ---
[id number]
[2024-02-28] MEDS ORDERED: ENOXAPARIN INJ 40 MG/0.4 ML SYR SQ SCH (21:00)
[2024-02-28] MEDS: FAMOTIDINE 40 MG TABLET PO SCH (21:22)
[2024-02-28] MEDS: METOPROLOL TARTRATE 25 MG TAB PO SCH (21:22)
[2024-02-29 05:51] LABS: Hematocrit (blood only) 46.9 % (42.0-52.0); Hemoglobin 15.6 g/dl (14.0-18.0); Mean Corpuscular Hemoglobin 31.5 pg (25.0-34.0); Mean Corpuscular Hgb Conc 33.3 g/dL (32.0-36.0); Mean Corpuscular Volume 94.6 fL (80.0-100.0); Mean Platelet Volume 9.2 fL (9.4-12.4); Platelet Count 174 K/uL (130-400); RDW Coefficient of Variation 13.6 % (11.5-14.5); RDW Standard Deviation 47.3 fL (36.4-46.3); Red Blood Count 4.96 M/uL (4.70-6.10); White Blood Count 7.35 K/ul (4.8-10.8)
[2024-02-29 06:09] LABS: BUN Creatinine Ratio 19.5 (10-20); Calcium 9.3 mg/dl (8.6-10.3); Chol HDL Ratio 6.1 (0-5); Creatinine Clr Calc Pharmacy 106.8 ml/min; Magnesium 2.1 mg/dl (1.7-2.4); Phosphorus 2.8 mg/dl (2.5-4.9)
[2024-02-29 06:25] LABS: Troponin I High Sensitivity 654.7 pg/ml (0-20)
[2024-02-29 07:45] LABS: Estimated Average Glucose 120 mg/dl; Hemoglobin A1C 5.8 % (4.5-5.6)
--- NOTE | 2024-02-29 08:12 | Pulmonology Progress Note ---
Date of Service February 29, 2024 Assessment & Plan (1) STEMI (ST elevation myocardial infarction): (2) Chest tightness: (3) Obesity: (4) HTN (hypertension): (5) Hypertriglyceridemia: (6) CAD (coronary artery disease): (7) Ex-smoker: Plan 2D echo 02/28/2024: EF 60-65%, borderline dilated RV with normal function -- STEMI S/p restenting in the LAD History of stent in the mid LAD for NSTEMI 04/2021. He required aspirin desensitization at that time Continue with dual antiplatelet therapy. Prasugrel and aspirin Continue with statin Continue with beta-nayla if heart rate permits along with losartan --Hypertension On metoprolol 12.5 mg twice daily Losartan 50 mg --Elevation of T. bili AST ALT within normal limit Patient had elevation of T. bili even in October 2023 Continue to trend --GERD On Pepcid 40 mg twice daily -- Probable MATTHEW/OHS Recommend outpatient polysomnography --Prophylaxis VTE: IPC GI: Pepcid Lines: Peripheral Diet: Cardiac Plan: In/out: -1 L, urine output 1650 Continue with dual antiplatelet therapy Recommend outpatient polysomnography He also needs to keep an eye on his blood pressure at home, if it is persistently elevated then increasing the dose of antihypertensive will be appropriate Patient hemodynamically stable to be downgrade to medical floor Disposition as per primary team and cardiology Please note the above document was generated using voice recognition software. It may contain grammatical, syntax or spelling errors.Any formal questions or concerns about the content, text or information contained within the body of this dictation should be directly addressed to the provider for clarification. Admission and Anticipated Discharge Date Admission Date: February 28, 2024 Subjective Patient seen and examined at bedside. No acute distress, no adverse events overnight Denies any chest pain, no shortness of breath No nausea or vomiting, fair appetite No headache Had a good night sleep Patient blood pressure was 160 at the time of examination. He did not get his morning medications yet Review of Systems 2 Review of Systems: All systems reviewed & are unremarkable except as noted in Subjective Physical Exam 2 Physical Exam: Constitutional: No acute distress HEENT: EOMI, PERRLA Respiratory system: Good air entry bilaterally, no wheeze, no rhonchi, minimal crackles bilateral lower lobes CVS: S1-S2 positive, no murmurs or gallops Abdomen: Soft, nontender, nondistended, positive bowel sounds x4, obese Extremities: +2 pulses bilaterally radialis/ dorsalis pedis, no cyanosis, no edema Neuro: Awake alert oriented x3 Psych: Normal mood and affect G/U: No Marquez Skin: no rashes, warm and dry Lymphatic: no cervical or axillary lymphadenopathy Results & Data Results & Data Vital Signs (Past 12 Hours) Vital Signs Pulse Resp BP Pulse Ox 02/29/24 06:59 54 L 02/29/24 06:00 158/91 H 02/29/24 06:00 158/91 H 02/29/24 06:00 53 L 16 94 02/29/24 05:03 52 L 15 95 02/29/24 05:00 182/109 H 02/29/24 05:00 182/109 H 02/29/24 05:00 182/109 H 02/29/24 04:39 52 L 15 94 02/29/24 04:09 60 17 96 02/29/24 04:00 177/99 H 02/29/24 03:45 53 L 13 94 02/29/24 03:12 51 L 12 94 02/29/24 03:01 153/96 H 02/29/24 03:01 153/96 H 02/29/24 03:01 153/96 H 02/29/24 02:57 67 15 92 02/29/24 02:27 51 L 14 93 02/29/24 02:00 131/96 02/29/24 01:57 51 L 13 92 02/29/24 01:06 56 L 16 91 02/29/24 00:03 51 L 13 94 02/29/24 00:00 157/94 H 02/28/24 23:39 53 L 14 94 02/28/24 23:03 54 L 14 94 02/28/24 23:00 158/92 H 02/28/24 23:00 158/92 H 02/28/24 23:00 158/92 H 02/28/24 22:51 55 L 13 95 02/28/24 22:03 54 L 15 95 02/28/24 22:00 153/92 H 02/28/24 22:00 153/92 H 02/28/24 21:57 52 L 14 95 02/28/24 21:06 54 L 16 148/96 H 93 02/28/24 20:33 57 L 19 95 Laboratory Results 02/29/24 05:23 02/29/24 05:23 PG Care Time/CCT Total # of Minutes Spent Total Time Spent with Patient: Total time spent is greater than 50% in coordination of care (as documented) at patient's floor/unit and/or counseling patient: Coding Level of Care Code 72885 SUB INP/OBS CARE 2/35MIN Diagnoses STEMI (ST elevation myocardial infarction) I21.3 Chest tightness R07.89 Obesity E66.9 HTN (hypertension) I10 Hypertriglyceridemia E78.1 CAD (coronary artery disease) I25.10 Ex-smoker Z87.891
[2024-02-29] MEDS: TOPIRAMATE 50 MG TAB PO SCH (08:24)
[2024-02-29] MEDS: LOSARTAN POTASSIUM 50 MG TAB PO SCH (08:24)
[2024-02-29] MEDS: ATORVASTATIN 40 MG TAB PO SCH (08:24)
[2024-02-29] MEDS: ASPIRIN 81 MG ECTAB PO SCH (08:25)
[2024-02-29] MEDS: PANTOprazole 40 MG TAB PO SCH (08:26)
[2024-02-29] MEDS: PRASugrel TAB 10 MG TAB PO ONE (08:27)
--- NOTE | 2024-02-29 08:41 | Cardiology Progress Note ---
Date of Service February 29, 2024 Assessment & Plan (1) CAD (coronary artery disease): Plan: Late stent thrombosisrepeat PCI to mid LAD Mild to moderate nonculprit CAD40% mid RCA, 25% OM1 2. Preserved LV function 3. Hypertension--BB/ARB 4. Dyslipidemia--LDL 49 5. Class I obesity/suspected OSAborderline dilated RV 6. GERD 7. Sinus bradycardia Feeling well this morning. No recurrent chest pain. Electrically stable on telemetry. Hypertensive overnight off BB/ARB LV function unchanged on echo. No signs of heart failure on exam No apparent access site complications. Repeat HS TropI to confirm peak Will transition ticagrelor to prasugrel (he felt gained weight on Brilinta previously). Loaded with 60 mg today, then 10 mg daily. Extended duration DAPT in the setting of stent thrombosis/overlapping stents Resume losartan this morning. Okay to give metoprolol with heart rates in the 50s Continue current statin --From a cardiac standpoint okay with discharge today. Will arrange follow-up with Dr. Charles in 1 to 2 weeks. We talked about cardiac rehab and interested in participating. Will arrange as an outpatient. We also talked about monitoring home blood pressures and consideration of sleep study. Admission and Anticipated Discharge Date Admission Date: February 28, 2024 Subjective Feeling well this morning. No recurrent chest pain. No issues overnight. Telemetry reviewedsinus bradycardia (did not receive evening metoprolol). Review of Systems Review of Systems: All systems reviewed & are unremarkable except as noted in HPI & below Physical Exam Physical Exam: General: Comfortable HEENT: Sclerae anicteric Lungs: Clear to auscultation bilaterally Cardiac: Regular rate and rhythm, no murmurs. Vascular: Right radial artery access site with no ecchymosis, hematoma. Distal pulse and sensation intact. Abdomen: Soft, nontender Extremities: Well perfused, no peripheral edema Neuro: Nonfocal Psych: Alert orient x3, normal affect and mood Results & Data Vital Signs (Past 12 Hours) Vital Signs Pulse Resp BP Pulse Ox 02/29/24 06:59 54 L 02/29/24 06:00 158/91 H 02/29/24 06:00 158/91 H 02/29/24 06:00 53 L 16 94 02/29/24 05:03 52 L 15 95 02/29/24 05:00 182/109 H 02/29/24 05:00 182/109 H 02/29/24 05:00 182/109 H 02/29/24 04:39 52 L 15 94 02/29/24 04:09 60 17 96 02/29/24 04:00 177/99 H 02/29/24 03:45 53 L 13 94 02/29/24 03:12 51 L 12 94 02/29/24 03:01 153/96 H 02/29/24 03:01 153/96 H 02/29/24 03:01 153/96 H 02/29/24 02:57 67 15 92 02/29/24 02:27 51 L 14 93 02/29/24 02:00 131/96 02/29/24 01:57 51 L 13 92 02/29/24 01:06 56 L 16 91 02/29/24 00:03 51 L 13 94 02/29/24 00:00 157/94 H 02/28/24 23:39 53 L 14 94 02/28/24 23:03 54 L 14 94 02/28/24 23:00 158/92 H 02/28/24 23:00 158/92 H 02/28/24 23:00 158/92 H 02/28/24 22:51 55 L 13 95 02/28/24 22:03 54 L 15 95 02/28/24 22:00 153/92 H 02/28/24 22:00 153/92 H 02/28/24 21:57 52 L 14 95 02/28/24 21:06 54 L 16 148/96 H 93 02/28/24 20:33 57 L 19 95 PG Care Time/CCT Total # of Minutes Spent Total Time Spent with Patient: Total time spent is greater than 50% in coordination of care (as documented) at patient's floor/unit and/or counseling patient: Coding Level of Care Code 71629 SUB INP/OBS CARE 3/50MIN Diagnoses CAD (coronary artery disease) I25.10
[2024-02-29] MEDS ORDERED: TICAGRELOR 90 MG TAB PO SCH (09:00)
[2024-02-29 09:24] VITALS: RESP 17
[2024-02-29 09:38] LABS: Troponin I High Sensitivity 751.3 pg/ml (0-20)
[2024-02-29 09:42] LABS: Thyroid Stimulating Hormone 5.724 uIu/ml (0.300-4.500)
[2024-02-29 11:50] VITALS: O2SAT 95
[2024-02-29 12:27] VITALS: BP 141/81; PULSE 66
--- NOTE | 2024-02-29 12:33 | Discharge Summary ---
Date of Service February 29, 2024 Admission HPI Per Admitting Provider Bari is a 68-year-old male with PMH of HTN, CAD s/p SHIVA, NSTEMI, hypertriglyceridemia, prediabetes, Gilbert's syndrome, anxiety, and depression. He presented on 02/27 for hypertension and intermittent chest pain with radiation to the shoulders bilaterally x 2 days. Patient woke up this morning around 6:30 AM, and immediately after getting out of bed, his shoulders began to hurt and he felt chest discomfort. He regularly checks his blood pressure with a home BP cuff, and reports that his BP was around 200/98 at that time. Patient took his regular morning antihypertensives prior to coming to the hospital. He describes his chest pain as a dull, achy pain, and characterizes it more as "discomfort" than actual pain. The pain is in his shoulders bilaterally and radiates down to his elbow. This has been intermittent over the past 2 days, and it last for 20 minutes at a time before subsiding. He rates the pain 5/10 at worst; he is chest pain-free at time of admission. He reports that this does not feel like his prior episode of IA, where he felt like there was a "brick" on his chest. However, during his IA, he could feel it in both of his shoulders. He denies any sharp/stabbing pain between his shoulder blades, and notes that it is more of an achiness in the anterior shoulders and biceps bilaterally. He reports no recent exercise exertion or muscle strains to his knowledge. There are no alleviating/exacerbating factors for his current episode of chest discomfort/tightness. The first episode occurred when he was taking out the garbage the other day, however this can occur both at rest or with exertion and is generally unpredictable. Patient took regular morning medications today; no recent change in medications other than starting Topamax in December. He reports no side effects with Topamax. Patient manages his own medicine at home. No sick contacts. He denies smoking, tobacco use, or recent alcohol use. Additionally, he has had 2 days of diarrhea/loose stool; no blood in the stool; no recent antibiotic use; no recent change in diet. Patient's BP on arrival was 196/108; BP is 149/97 at time of admission. Vitals otherwise stable. ED course: Hydralazine 10 mg IV Aspirin 324 mg p.o. ROS: Patient endorses intermittent chest pain/tightness with radiation to both shoulders, soreness in both biceps, and diarrhea (both soft, and liquidy). Patient denies fever, chills, night-sweats, dizziness, lightheadedness, SHERMAN, chest pain at present, chest palpitations, SOB, cough, pleuritic CP, abdominal pain, back pain, pain between the shoulder blades, N/V, blood in stool, redness/swelling in the legs, or numbness/tingling in the arms. Specialty Data Hospitalist Discharge diagnosis: STEMI s/p PCI to LAD Discharge assessment: Vital Signs Temp Pulse Resp BP Pulse Ox O2 Del Method 02/29/24 11:31 146/82 H 02/29/24 11:30 77 95 Room Air 02/29/24 11:03 60 17 96 Room Air 02/29/24 11:01 151/87 H 02/29/24 10:42 59 L 18 94 02/29/24 10:31 117/84 02/29/24 10:15 64 18 93 02/29/24 10:00 59 L 13 92 02/29/24 10:00 103/82 02/29/24 09:51 119/74 02/29/24 09:30 67 14 127/91 92 Room Air 02/29/24 09:00 68 17 133/99 93 Room Air 02/29/24 08:24 178/95 H 02/29/24 08:00 64 19 158/105 H 96 Room Air 02/29/24 07:00 56 L 17 154/92 H 94 Room Air 02/29/24 06:59 54 L 02/29/24 06:00 158/91 H 02/29/24 06:00 158/91 H 02/29/24 06:00 53 L 16 94 02/29/24 05:03 52 L 15 95 02/29/24 05:00 182/109 H 02/29/24 05:00 182/109 H 02/29/24 05:00 182/109 H 02/29/24 04:39 52 L 15 94 02/29/24 04:09 60 17 96 02/29/24 04:00 177/99 H 02/29/24 03:45 53 L 13 94 02/29/24 03:12 51 L 12 94 02/29/24 03:01 153/96 H 02/29/24 03:01 153/96 H 02/29/24 03:01 153/96 H 02/29/24 02:57 67 15 92 02/29/24 02:27 51 L 14 93 02/29/24 02:00 131/96 02/29/24 01:57 51 L 13 92 02/29/24 01:06 56 L 16 91 02/29/24 00:03 51 L 13 94 02/29/24 00:00 157/94 H 02/28/24 23:39 53 L 14 94 02/28/24 23:03 54 L 14 94 02/28/24 23:00 158/92 H 02/28/24 23:00 158/92 H 02/28/24 23:00 158/92 H 02/28/24 22:51 55 L 13 95 02/28/24 22:03 54 L 15 95 02/28/24 22:00 153/92 H 02/28/24 22:00 153/92 H 02/28/24 21:57 52 L 14 95 02/28/24 21:06 54 L 16 148/96 H 93 02/28/24 20:33 57 L 19 95 02/28/24 20:06 52 L 15 93 02/28/24 20:00 146/88 H 02/28/24 20:00 146/88 H 02/28/24 19:30 142/90 H 02/28/24 19:30 142/90 H 02/28/24 19:27 52 L 17 94 02/28/24 19:24 51 L 14 94 02/28/24 19:00 158/93 H 02/28/24 17:30 135/89 02/28/24 17:24 57 L 18 95 Room Air 02/28/24 17:12 59 L 19 95 Room Air 02/28/24 17:00 137/85 02/28/24 16:51 60 20 96 02/28/24 16:30 153/87 H 02/28/24 16:30 56 L 21 94 02/28/24 16:18 49 L 13 97 02/28/24 16:00 137/82 02/28/24 16:00 48 L 02/28/24 15:51 49 L 17 94 02/28/24 15:36 49 L 16 95 02/28/24 15:30 150/87 H 02/28/24 15:30 150/87 H 02/28/24 15:21 49 L 12 95 02/28/24 15:00 142/85 H 02/28/24 15:00 142/85 H 02/28/24 15:00 48 L 16 96 02/28/24 14:30 138/89 02/28/24 14:30 138/89 02/28/24 14:30 47 L 13 95 02/28/24 14:21 49 L 14 94 02/28/24 14:00 49 L 14 95 02/28/24 14:00 147/93 H 02/28/24 13:45 52 L 21 95 02/28/24 13:30 48 L 18 96 Room Air 02/28/24 13:30 153/94 H 02/28/24 13:15 48 L 21 96 Room Air 02/28/24 13:15 134/80 02/28/24 13:15 134/80 02/28/24 13:12 49 L 23 95 Room Air 02/28/24 13:06 Room Air 02/28/24 13:06 36.4 C L 02/28/24 13:04 55 L 02/28/24 13:00 136/83 02/28/24 12:57 48 L 23 95 Room Air 02/28/24 12:45 127/75 02/28/24 12:39 53 L 18 95 Room Air 02/28/24 12:30 53 L 130/73 02/28/24 12:30 130/73 Intake and Output 02/28/24 02/29/24 02/29/24 22:59 06:59 14:59 Intake Total 240 / 600 360 / 600 Output Total 1050 / 1650 600 / 1650 Balance -810 / -1050 -240 / -1050 Intake: Oral 240 / 600 360 / 600 Output: Urine 1050 / 1650 600 / 1650 Other: # Unmeasured Voids 400 02/29/24 05:23 02/29/24 05:23 physical exam: GENERAL: 68 yo WM obese, no distress. LUNGS: Clear to auscultation bilaterally. No W/R/R. CARDIOVASCULAR: Regular rate and rhythm. ABDOMEN: Soft, non-tender and non-distended. BS normoactive x 4 quad. EXTREMITIES: No edema. Non-tender. Peripheral pulses +2/4. NEUROLOGIC: A&O x3. No focal neurological deficits. CN II-XII grossly intact. PSYCHIATRIC: Cooperative. Appropriate mood and affect. SKIN: Warm, dry, intact. No rashes or lesions. Discharge Data Consultations 02/28/24 09:12 ED Decision to Admit Stat 02/28/24 11:09 Consult Cardiology Stat 02/28/24 11:32 Consult Instrument Technician Routine Procedures Performed Chest X-Ray 02/28/24 08:00 XR chest 1V portable CLINICAL HISTORY: Chest pain, nonspecific COMPARISON STUDY: Chest CT September 22, 2021. Chest radiograph April 16, 2022. FINDINGS: Lung volumes are normal. There is no consolidation to suggest pneumonia. Minimal opacity along the left heart border favors atelectasis or a pericardial fat pad. There is no pneumothorax or pleural effusion. There is mild enlargement of the cardiac silhouette. Mediastinal contours are normal. There is no evidence for pulmonary edema. IMPRESSION: No acute cardiopulmonary findings. ACT 112: Negative or not required by law. Electronically signed by: Williams Willis M.D. 02/28/2024 8:37 AM Operation Date: 02/28/24 11:00 Actual Procedures s Cineradiography w/Routine Exam - Russ Kim MD p Aspiration/PCI w/SHIVA for Stemi - Russ Kim MD s IVUS Coronary Single Vessel - Russ Kim MD Hospital Course (1) STEMI (ST elevation myocardial infarction): Addendum: Nursing staff reached out to ED physician, as patient developed "crushing" chest pain while in the ED at approximately 10:50 AM. A repeat EKG was obtained that revealed acute STEMI in the anterolateral leads. Heart alert was called Interventional cardiology consult appreciated (Dr. Kim); patient will go for cardiac cath. - Underwent LHC by Dr. Kim on 02/28/24, found to have late stent stenosis, repeat PCI to mid LAD performed - Noted to have nonobstructive mild to moderate disease 40% mid RCA and 25% OM1 - Trop this AM continues to trend up at 751.3 --> repeat trop to ensure level trending down - Dr. Kim transitioned from ticagrelor to prasugrel, loaded with 60mg PO x1 today and then will start 10mg daily thereafter - Resume Losartan this AM and Metoprolol which is acceptable to continue with HR in the 50s - Continue atorvastatin 80mg daily - Will arrange for cardiac rehab as outpatient and will f/u with Dr. Charles in 1-2 weeks - Consider sleep study which can be arranged by PCP and monitor BPs at home - Discussed monitoring diet and eliminating alcohol and saturated fats - educational handout provided (2) HTN (hypertension): Patient presented on 02/27 for hypertension, intermittent chest tightness, and shoulder pain x 2 days H/o IA and heart stents Patient initially reported he was chest pain-free at time of admission, then developed acute onset of crushing chest pain Troponin elevated at 31.8 on arrival Negative stress echo for ischemia on May 01, 2022 Continued on home antihypertensive medications - Monitor BP at home as outlined above and further adjustments can be made to BP meds on an outpatient basis (3) CAD (coronary artery disease): - Continue aspirin and atorvastatin - added prasugrel in setting of PCI with SHIVA (4) Obesity: Started on Topamax 01/16 for weight loss Unable to take phentermine due to cardiac history; insurance does not cover GLP- 1s - incorporate exercise into routine (5) History of non-ST elevation myocardial infarction (NSTEMI): S/p LAD stent April 2021 Plan Patient is medically and hemodynamically stable for discharge home today with outpatient cardiology and pcp follow up. Follow all post catheterization discharge instructions. Patient noted to have a slightly elevated TSH, recommended follow up with PCP for repeat TFTs. Above plan of care has been d/w Dr. Franks who has also seen and evaluated this patient prior to discharge. Total time for discharge: 38 minutes Coding Level of Care Code 46131 INP/OBS DISCH >30 MIN Diagnoses STEMI (ST elevation myocardial infarction) I21.3 HTN (hypertension) I10 CAD (coronary artery disease) I25.10 Obesity E66.9 History of non-ST elevation myocardial infarction (NSTEMI) I25.2
--- NOTE | 2024-02-29 20:45 | Electrocardiogram Report ---
Test Reason : Blood Pressure : */* mmHG Vent. Rate : 66 BPM Atrial Rate : 40 BPM P-R Int : 162 ms QRS Dur : 84 ms QT Int : 412 ms P-R-T Axes : 71 -13 -23 degrees QTcB Int : 431 ms Sinus bradycardia with PVCs and intermittent wide complex rhythm Premature atrial complexes ST elevation consider anterior injury or acute infarct Abnormal ECG When compared with ECG of 28-Feb-2024 07:59, Wide complex rhythm is now present Premature ventricular complexes are now Present Premature atrial complexes are now Present ST elevation now present in Anterior leads Confirmed by Lazaro Harper ([id number]) on 02/29/2024 8:45:01 PM Referred By: REFERRED SELF Confirmed By: Lazaro Harper
--- NOTE | 2024-02-29 20:48 | Electrocardiogram Report ---
Test Reason : Blood Pressure : */* mmHG Vent. Rate : 47 BPM Atrial Rate : 47 BPM P-R Int : 164 ms QRS Dur : 80 ms QT Int : 444 ms P-R-T Axes : 57 -14 -16 degrees QTcB Int : [address] elevation consider anterior injury or acute infarct ACUTE PR / STEMI Abnormal ECG When compared with ECG of 28-Feb-2024 10:51, Wide complex rhythm is no longer present Premature ventricular complexes are no longer Present ST more elevated in Anterior leads Confirmed by Lazaro Harper ([id number] on 02/29/2024 8:48:09 PM Referred By: REFERRED SELF Confirmed By: Lazaro Harper
[2024-03-01] MEDS ORDERED: PRASugrel TAB 10 MG TAB PO SCH (09:00)
== END 2024-02-29 14:20 | disposition home or self-care (01) | DRG 321 ==
LOC: ED 07:44 → EDINP 07:44 → OBSVTOIN 09:43 → SUATTDRO 09:43 → EDINP 11:15 → 1E 12:04